=== PATIENT | male | born 1965 | race Two or more races ===

== ENCOUNTER 2021-03-08 22:17 | Emergency (ER) | payer MEDICAID, OTHER ==
[~2021-03-08] VITALS: Ht 185.4 cm; Wt 95.3 kg
[2021-03-09] MEDS ORDERED: cefTRIAXone SOD 1,000 MG VL IM ONE (00:30)
[2021-03-09 00:40] VITALS: BP 149/82
== END 2021-03-09 00:47 | disposition home or self-care (01) ==
LOC: ER 22:19
DX: J18.9 Pneumonia, unspecified organism (principal); I10 Essential (primary) hypertension; Z20.822 Contact with and (suspected) exposure to COVID-19
CPT/HCPCS: 36415; 71046; 87426; 93005; 96372; 99285; J0696

== ENCOUNTER 2023-10-14 08:25 | Inpatient (IN) | payer MEDICAID ==
[~2023-10-14] VITALS: Ht 185.4 cm; Wt 96.4 kg
[2023-10-14] MEDS: cloNIDine HCL 0.1 MG TAB PO ONE (08:53)
[2023-10-14 09:32] LABS: Basophils # (auto) 0 10 ^3/uL (0-0.2); Basophils % (auto) 0.8 % (0.0-2.0); Eosinophils # (auto) 0.3 10 ^3/uL (0-0.8); Eosinophils % (auto) 5.9 % (0.0-7.0); Hematocrit 44.5 % (41.0-53.0); Hemoglobin 14.7 g/dL (13.5-17.5); Lymphocytes # (auto) 1.2 10 ^3/uL (0.4-5.4); Mean Corpuscular Volume 90.8 fL (80.0-100.0); Monocytes # (auto) 0.4 10 ^3/uL (0-1.3); Monocytes % (auto) 8.6 % (0.0-12.0); Neutrophils # (auto) 2.6 10 ^3/uL (1.6-8.6); Neutrophils % (auto) 57.7 % (37.0-80.0); Nucleated Red Blood Cells % 0.1 %; Red Cell Distribution Width 14.1 % (11.8-14.3); White Blood Cell 4.5 10^3/uL (4.4-10.8)
[2023-10-14 09:41] LABS: Chloride 107 mmol/L (98-107); Sodium 138 mmol/L (136-145)
[2023-10-14 09:42] LABS: Anion Gap 8 (5-15); Calcium 9.2 mg/dL (8.5-10.1); Carbon Dioxide 23 mmol/L (20-30)
[2023-10-14 09:47] LABS: BUN/Creatinine Ratio 13.2 (10.0-20.0); Blood Urea Nitrogen 16 mg/dL (9-23); Glucose 90 mg/dL (74-106)
[2023-10-14 10:00] LABS: INR 1.02 (0.9-1.15); Partial Thromboplastin Time 32.1 SEC (24.5-34.5); Prothrombin Time 10.7 sec (9.3-11.8)
[2023-10-14 10:16] VITALS: BP 174/95; PULSE 60; RESP 18; TEMP 97.9; O2SAT 97
[2023-10-14] MEDS ORDERED: GABA-1250 PO (11:03)
[2023-10-14] MEDS ORDERED: LOSA-535 PO (11:03)
[2023-10-14] MEDS ORDERED: HYDR-4298 PO (11:03)
[2023-10-14] MEDS ORDERED: NIFE90TA75 (11:03)
[2023-10-14] MEDS ORDERED: DULO1CAP5 PO (11:03)
[2023-10-14] MEDS ORDERED: MORPHINE SULFATE INJ 2 MG/ml SYRG IV PRN (11:15)
[2023-10-14] MEDS ORDERED: hydrALAZINE HCL 20 MG/ML VL IV PRN (11:15)
[2023-10-14] MEDS ORDERED: NITROGLYCERIN 0.4 MG SL TAB SL PRN (11:15)
[2023-10-14] MEDS ORDERED: HYDROcodone-ACET 5/325MG TAB PO PRN (11:15)
[2023-10-14] MEDS ORDERED: ACETAMINOPHEN 325 MG TAB PO PRN (11:15)
[2023-10-14 12:06] LABS: Triglycerides 62 mg/dL (< 150)
[2023-10-14 12:07] LABS: LDL Cholesterol 97 mg/dL (< 100)
[2023-10-14 12:08] LABS: Cholesterol 179 mg/dL (< 200); HDL Cholesterol 65 mg/dL (40-59)
[2023-10-14] MEDS ORDERED: DULoxetine HCL 30 MG CAP PO SCH (22:00)
[2023-10-15] MEDS ORDERED: LOSARTAN POTASSIUM 50 MG TAB PO SCH (10:00)
[2023-10-15] MEDS ORDERED: GABAPENTIN 300 MG CAP PO SCH (10:00)
== END 2023-10-15 23:27 | disposition left against medical advice (07) | DRG 199 ==
LOC: ER 08:25 → TELE 11:03
PROVIDERS: ADMIT Nurse Practitioner Family; ATTEND Nurse Practitioner Family
DX: I16.1 Hypertensive emergency (principal); F12.90 Cannabis use, unspecified, uncomplicated; R04.0 Epistaxis; F15.90 Other stimulant use, unspecified, uncomplicated; F17.210 Nicotine dependence, cigarettes, uncomplicated; F19.10 Other psychoactive substance abuse, uncomplicated; Z88.8 Allergy status to other drugs, medicaments and biological substances
CPT/HCPCS: 36415; 80048; 80061; 80320; 84443; 85025; 85610; 85730; 99291; G0378

== ENCOUNTER 2025-03-17 12:10 | Inpatient (IN) | payer MEDICAID ==
[2025-03-17] VITALS (34 sets, daily range): BP systolic 125–173; BP diastolic 87–120; PULSE 49–79; RESP 8–17; TEMP 97.6–98.8; O2SAT 83–100
[~2025-03-17] VITALS: Ht 185.4 cm; Wt 95.0 kg
[~2025-03-17 12:10] MED LIST: DULO1CAP5 PO; GABA-1250 PO; HYDR100T10 PO; LOSA-535 PO; NIFE90TA75
--- NOTE | 2025-03-17 12:21 | ECG ---
[facility] Test Date: 2025-03-17 Test Time: 12:13:41 Pat Name: [place] BETTENCOURT Department: Room: 0280T Gender: M Microbiology Analyst: RAYNE : 1965 Requested By: ANTONIO CALDERON Order Number: [id number] Reading MD: Ben Thornton Measurements Intervals [place] Rate: 98 P: 81 WA: 153 QRS: 30 QRSD: 84 T: 55 QT: 366 QTc: 468 Interpretive Statements Sinus rhythm Biatrial enlargement Posterior infarct, old Abnrm T, consider ischemia, anterolateral lds Electronically Signed On 03-18-2025 19:18:15 PDT by Ben Thornton Please click the below link to view image of tracing.
[2025-03-17] MEDS: HEPARIN SODIUM (PORCINE) 5000 UNITS/ML 1ML VIAL IV ONE (12:29)
--- NOTE | 2025-03-17 12:29 | ED.PDOC ---
HPI Comments 59-year-old male with PMHx HTN presents with a chief complaint of chest pain x 20 minutes prior to ER arrival. Patient states that his pain is localized to his sternal region, nonradiating, and rates it a sharp 10/10. Patient states that upon arrival to the ER the chest pain has subsided. Patients EKG for EMS showed ST elevations. Patient EKG upon ER arrival was sent to STEMI doctor who stated that he would be taking patient directly to the Tripper. Chief Complaint: STEMI Time Seen by MD: 12:10 Primary Care Provider: ? Reviewed Notes: Medications, Allergies Allergies: Coded Allergies: Lisinopril (Verified Allergy, Unknown, 03/08/21) Home Meds Reported Medications Nifedipine (Nifedipine Er) 90 Mg Tab, 1 10/14/23 Gabapentin (Gabapentin) 300 Mg Cap, PO 10/14/23 Duloxetine HCl (Duloxetine HCl) 30 Mg Cap, 1 CAP PO BID 10/14/23 Hydralazine Hcl (Hydralazine Hcl) 100 Mg Tab, 1 TAB PO BID 10/14/23 Losartan Potassium (Losartan Potassium) 100 Mg Tab, 1 TAB PO DAILY 10/14/23 Information Source: Patient, Emergency Med Personnel Mode of Arrival: EMS Severity: Moderate Timing: Minutes Duration: Since onset Prehospital treatment: 12 Lead EKG, ASA, Data Management Consultant Location: Substernal Radiation: No Radiation Quality: Sharp Onset: At Rest Cardiac Risk Factors: None PE Risk Factors: None Past Medical History PAST MEDICAL HISTORY: HTN Surgical History: Denies all surgeries Family History Family History: Reviewed,noncontributory to illness, No family hx of Cancer, No family hx of DM, No family hx of Heart miguel a, No family hx of HTN, No family hx ofKidney miguel a, No family hx of Liver miguel a, No family hx of Lung miguel a, No family hx of Stroke Social History Smoker: Cigarettes Alcohol: Occasionally Drugs: Marijuana, Methamphetamine Lives In: Home Constitutional: denies: chills, diaphoresis, fatigue, fever, malaise, sweats, w eakness, others EENTM: denies: blurred vision, double vision, ear bleeding, ear discharge, ear drainage, ear pain, ear ringing, eye pain, eye redness, hearing loss, mouth pain, mouth swelling, nasal discharge, nose bleeding, nose congestion, nose pain, photophobia, tearing, throat pain, throat swelling, voice changes, others Respiratory: denies: cough, hemoptysis, orthopnea, SOB at rest, shortness of breath, SOB with excertion, stridor, wheezing, others Cardiovascular: reports: chest pain; denies: dizzy spells, diaphoresis, Dyspnea on exertion, edema, irregular heart beat, left arm pain, lightheadedness, palpitations, PND, syncope, others Gastrointestinal: denies: abdomen distended, abdominal pain, blood streaked bowels, constipated, diarrhea, dysphagia, difficulty swallowing, hematemesis, melena, nausea, poor appetite, poor fluid intake, rectal bleeding, rectal pain, vomiting, others Genitourinary: denies: burning, dysuria, flank pain, frequency, hematuria, incontinence, penile discharge, penile sore, pain, testicle pain, testicle swelling, urgency, others Neurological: denies: dizziness, fainting, headache, left sided numbness, left sided weakness, numbness, paresthesia, pre-existing deficit, right sided numbness, right sided weakness, seizure, speech problems, tingling, tremors, weakness, others Musculoskeletal: denies: back pain, gout, joint pain, joint swelling, muscle pain, muscle stiffness, neck pain, others Integumetry: denies: bruises, change in color, change in hair/nails, dryness, laceration, lesions, lumps, rash, wounds, others Allergic/Immunocompromised: denies: Difficulty Healing, Frequent Infections, Hives, Itching, others Hematologic/Lymphatic: denies: anemia, blood clots, easy bleeding, easy bruising, swollen glands, others Endocrine: denies: excessive hunger, excessive sweating, excessive thirst, excessive urination, flushing, intolerance to cold, intolerance to heat, unexplained weight gain, unexplained weight loss, others Psychiatric: denies: anxiety, bipolar disorder, depression, hopeless, panic disorder, schizophrenia, sleepless, suicidal, others All Other Systems: Reviewed and Negative Physical Exam General Appearance: Moderate Distress, Normal HEENT: Normal ENT Inspection, Pharynx Normal, TMs Normal Neck: Full Range of Motion, Non-Tender, Normal, Normal Inspection Respiratory: Chest Non-Tender, Lungs Clear, No Accessory Muscle Use, No Respiratory Distress, Normal Breath Sounds Cardiovascular: No Edema, No JVD, No Murmur, No Gallop, Normal Peripheral Pulses, Regular Rate/Rhythm Breast Exam: Deferred Gastrointestinal: No Organomegaly, Non Tender, No Pulsatile Mass, Normal Bowel Sounds, Soft Genitalia: Deferred Pelvic: Deferred Rectal: Deferred Extremities: No calf tenderness, Normal capillary refill, Normal inspection, Normal range of motion, Non-tender, No pedal edema Musculoskeletal : Apperance: Normal Neurologic: Alert, drop hammer setter up II-XII nml as Tested, No Motor Deficits, Normal Affect, Normal Mood, No Sensory Deficits Cerebellar Function: Normal Reflexes: Normal Skin: Dry, Normal Color, Warm Peripheral Pulses: 3+ Radial (R), 3+ Radial (L) Lymphatic: No Adenopathy EKG EKG : Pulse Rate (adult): 98 Cardiac Rhythm: NSR Was a procedure done? Was a procedure done?: No CP Differential Dx Differential Diagnosis: A-fib, A-Flutter, Angina, Anxiety / Panic Attack, Atrial Dysrhythmia, Electrolyte Disorder X-Ray, Labs, Meds, VS Vital Signs Date Time Temp Pulse Resp B/P (MAP) Pulse Ox O2 Delivery O2 Flow Rate FiO2 03/17/25 12:44 98 03/17/25 12:13 98 03/17/25 12:13 79 17 95 Nasal Cannula* 2 28 03/17/25 12:11 97.7 86 18 157/95 97 97.7 03/17/25 12:11 97.7 86 18 157/95 (115) 97 97.7 Lab Test 03/17/25 12:16 Range/Units White Blood Count 5.3 4.4-10.8 10^3/uL Red Blood Count 4.83 4.5-5.90 10^6/uL Hemoglobin 14.6 13.5-17.5 g/dL Hematocrit 44.3 41.0-53.0 % Mean Corpuscular Volume 91.6 80.0-100.0 fL Mean Corpuscular Hemoglobin 30.3 28.0-32.0 pg Mean Corpuscular Hemoglobin Concent 33.1 32.0-36.0 g/dL Red Cell Distribution Width 14.5 H 11.8-14.3 % Platelet Count 327 140-450 10^3/uL Mean Platelet Volume 6.8 L 6.9-10.8 fL Neutrophils (%) (Auto) 47.7 37.0-80.0 % Lymphocytes (%) (Auto) 38.3 10.0-50.0 % Monocytes (%) (Auto) 9.8 0.0-12.0 % Eosinophils (%) (Auto) 3.7 0.0-7.0 % Basophils (%) (Auto) 0.5 0.0-2.0 % Neutrophils # (Auto) 2.5 1.6-8.6 10 ^3/uL Lymphocytes # (Auto) 2.0 0.4-5.4 10 ^3/uL Monocytes # (Auto) 0.5 0-1.3 10 ^3/uL Eosinophils # (Auto) 0.2 0-0.8 10 ^3/uL Basophils # (Auto) 0 0-0.2 10 ^3/uL Nucleated Red Blood Cells 0.0 % Prothrombin Time 10.3 9.3-11.8 sec Prothrombin Time INR 0.97 0.9-1.15 Activated Partial Thromboplast Time 28.5 24.5-34.5 SEC Sodium Level 141 136-145 mmol/L Potassium Level 3.5 3.5-5.1 mmol/L Chloride Level 108 H 98-107 mmol/L Carbon Dioxide Level 21 20-31 mmol/L Anion Gap 12 5-15 Blood Urea Nitrogen 15 9-23 mg/dL Creatinine 1.34 H 0.700-1.30 mg/dL Glomerular Filtration Rate Calc 61 >90 mL/min BUN/Creatinine Ratio 11.2 10.0-20.0 Serum Glucose 100 74-106 mg/dL Calcium Level 9.4 8.7-10.4 mg/dL Magnesium Level 2.1 1.6-2.6 mg/dL Total Bilirubin 0.6 0.2-1.0 mg/dL Aspartate Amino Transferase (AST) 21 13-40 U/L Alanine Aminotransferase (ALT) < 9 7-40 U/L Alkaline Phosphatase 96 46-116 U/L Troponin I High Sensitivity 8 </=54 ng/L Total Protein 7.5 5.7-8.2 g/dL Albumin 4.3 3.2-4.8 g/dL Current Medications Medications (Trade) Dose Ordered Sig/Jensen Route Start Time Stop Time Status Last Admin Heparin Sodium (Porcine) 5,000 units ONCE ONCE IV 03/17/25 12:30 03/17/25 12:31 DC 03/17/25 12:29 Patient alert. Complaining of chest pain. Was given aspirin prior to arrival. Vitals stable. Cardiac rhythm seen with the paramedics was showing elevation in the septal leads. He was given heparin. Spoke with Cardiology. He will be taken to labor relations officer. Explained to the patient. Continue monitoring. Time of 1ST Reevaluation: 12:40 Reevaluation 1ST: Unchanged Patient Education/Counseling: Diagnosis, Treatment, Need For Follow Up Family Education/Counseling: No Family Present SEPSIS Sepsis Screen Physician Orders Chest Portable (03/17/25 12:19) Data Management Consultant (03/17/25 12:19) Blood Pressure (03/17/25 12:19) Pulse Oximetry (03/17/25 12:19) Heplock Iv (03/17/25 12:19) Heplock Iv (03/17/25 12:19) Oxygen Per Hour (03/17/25 12:19) Electrocardigram (03/17/25 13:19) Electrocardigram (03/17/25 15:19) Cl Left Heart Cath (03/17/25 12:42) Vital Signs Date Time Temp Pulse Resp B/P (MAP) Pulse Ox O2 Delivery O2 Flow Rate FiO2 03/17/25 12:44 98 03/17/25 12:13 98 03/17/25 12:13 79 17 95 Nasal Cannula* 2 28 03/17/25 12:11 97.7 86 18 157/95 97 97.7 03/17/25 12:11 97.7 86 18 157/95 (115) 97 97.7 Laboratory Tests Test 03/17/25 12:16 White Blood Count 5.3 10^3/uL (4.4-10.8) Medications Medications Dose Ordered Sig/Jensen Route Start Time Stop Time Status Last Admin Dose Admin Heparin Sodium (Porcine) 5,000 units ONCE ONCE IV 03/17/25 12:30 03/17/25 12:31 DC 03/17/25 12:29 Departure 1 Departure Time of Disposition: 12:33 Impression: Primary Impression: STEMI (ST elevation myocardial infarction) Qualified Codes: I21.3 - ST elevation (STEMI) myocardial infarction of unspecified site Disposition: ADMITTED INPATIENT Admit to: Med Surg Condition: Guarded Critical Care Note Critical Care Time?: Yes (90 min-critical care time only) Stability Stability form required: No Heart Score Heart Score: Heart Score Response (Comments) Value History Highly Suspicious [address]-Deviation 2 Age 45-64 1 Risk Factors >3 or Hx ASHD 2 Troponin N/A 0 Total 7 I personally scribed for ANTONIO CALDERON MD ([email or web address]) on 03/17/25 at 12:29. Electronically submitted by Darshan Wiseman ([email or web address]). ANTONIO CALDERON MD Mar 17, 2025 12:29
[2025-03-17 12:40] LABS: Hematocrit 44.3 % (41.0-53.0); Hemoglobin 14.6 g/dL (13.5-17.5); Mean Corpuscular Hemoglobin 30.3 pg (28.0-32.0); Mean Corpuscular Volume 91.6 fL (80.0-100.0); Nucleated Red Blood Cells % 0.0 %
[2025-03-17 12:51] LABS: Alanine Aminotransferase < 9 U/L (7-40); Albumin 4.3 g/dL (3.2-4.8); Alkaline Phosphatase 96 U/L (46-116); Anion Gap 12 (5-15); BUN/Creatinine Ratio 11.2 (10.0-20.0); Bilirubin, Total 0.6 mg/dL (0.2-1.0); Blood Urea Nitrogen 15 mg/dL (9-23); Calcium 9.4 mg/dL (8.7-10.4); Carbon Dioxide 21 mmol/L (20-31); Chloride 108 mmol/L (98-107); Glucose 100 mg/dL (74-106); Magnesium 2.1 mg/dL (1.6-2.6); Potassium 3.5 mmol/L (3.5-5.1); Sodium 141 mmol/L (136-145); Total Protein 7.5 g/dL (5.7-8.2)
[2025-03-17] MEDS: IODIXANOL 320MG/ML 100ML BTL IV ONE ×2 (12:51→16:13)
[2025-03-17] MEDS: ANGIOMAX 250 MG VIAL IV ONE ×2 (12:52→16:12)
[2025-03-17] MEDS: SODIUM CHL 0.9% 50 ML ONE ×2 (12:52→16:12)
[2025-03-17] MEDS: LIDOCAINE 2%HCL (LOCAL ANESTH.) INJ 20ML MDV ONE (12:52)
[2025-03-17] MEDS: fentaNYL CITRATE 100 MCG/2 ML VL ONE (12:52)
[2025-03-17] MEDS: MIDAZOLAM HCL 2MG/2ML 2ml VIAL (1mg/ml) ONE (12:52)
--- NOTE | 2025-03-17 12:57 | DVH ---
CHEST RADIOGRAPH Indication: sob Technique: Single frontal view of the chest was obtained Comparison: None FINDINGS: Lines and Tubes: None Lungs: No focal consolidation. Mild pulmonary vascular congestion. Pleura: No effusion. No pneumothorax. Cardiomediastinal contours: Mild cardiomegaly. Bones: No acute osseous abnormality. IMPRESSION: 1. Mild cardiomegaly and mild pulmonary vascular congestion. No focal consolidations.
[2025-03-17] MEDS ORDERED: MORPHINE SULFATE INJ 2 MG/ml SYRG IV PRN (13:00)
[2025-03-17] MEDS ORDERED: NITROGLYCERIN 0.4 MG SL TAB SL PRN (13:00)
[2025-03-17 13:41] LABS: INR 0.97 (0.9-1.15); Partial Thromboplastin Time 28.5 SEC (24.5-34.5); Prothrombin Time 10.3 sec (9.3-11.8)
--- NOTE | 2025-03-17 15:04 | DVHHP2 ---
History of Present Illness Reason for Visit: STEMI History of Present Illness This is a pleasant 59-year-old male with PMHx HTN presents with a chief complaint of chest pain x 20 minutes prior to ER arrival. Patient states that his pain is localized to his sternal region, nonradiating, and rates it a sharp 10/10. Patient states that upon arrival to the ER the chest pain has subsided. Patients EKG for EMS showed ST elevations. Patient EKG upon ER arrival was sent to STEMI doctor who stated that he would be taking patient directly to the Mds Rn. Upon evaluation of patient, he denied chest pain and states that it has been relieved. He reported initial chest pain occurred last night but reoccurred this morning. He denied recent injury or trauma to his chest. He denied prior history of this pain. The patient is concerned about his symptoms and would like to be further evaluated and treated. The patient will be admitted under hospitalist care to the telemetry unit for continuous monitoring. The patient denies fever, chills, dizziness, headache, palpitations, shortness of breath, nausea, vomiting, abdominal pain, diarrhea, constipation and other associated symptoms. The plan has been discussed with the patient and primary RN in which all questions concerns have been addressed. Cardiovascular: HTN Past Surgical History: None Family History: None Smoke: No ALCOHOL: none Drugs: None Lives: with Family Domestic Violence: Neg Review of Systems Cardiovascular: Chest Pain Allergies: Coded Allergies: Lisinopril (Verified Allergy, Unknown, 03/08/21) Medications Current Medications Medications Dose Ordered Sig/Jensen Route Start Time Stop Time Status Last Admin Dose Admin Sodium Chloride 1,000 ml @ 100 mls/hr Q10H IV 03/17/25 13:00 Acetaminophen 650 mg Q6HP PRN PO 03/17/25 13:00 Nitroglycerin 0.4 mg Q5MINP PRN SL 03/17/25 13:00 Morphine Sulfate 2 mg Q30M PRN IV 03/17/25 13:00 Exam Vital Signs Vital Signs Date Time Temp Pulse Resp B/P (MAP) Pulse Ox O2 Delivery O2 Flow Rate FiO2 03/17/25 12:44 98 03/17/25 12:13 17 95 Nasal Cannula* 2 28 03/17/25 12:11 97.7 157/95 97.7 General Appearance: Alert, Oriented X3, Cooperative, No acute distress HEENT: Atraumatic, PERRLA, Mucous membr. moist/pink Respiratory: Clear to auscultation, Normal air movement Cardiovascular: Regular rate, Normal S1, Normal S2, No murmurs Abdominal: Normal bowel sounds, Soft, No tenderness, No hepatospenomegaly, No masses Extremities: No clubbing, No cyanosis, No edema, Normal pulses, No tenderness/swelling Skin: No rashes, No breakdown Neuro: Normal gait, Normal speech, Strength at 5/5 X4 ext, Normal tone, Sensation intact, Cranial nerves 3-12 NL Psych/Mental Status: Mental status NL, Mood NL Labs/Xrays Labs Test 03/17/25 12:16 Range/Units White Blood Count 5.3 4.4-10.8 10^3/uL Red Blood Count 4.83 4.5-5.90 10^6/uL Hemoglobin 14.6 13.5-17.5 g/dL Hematocrit 44.3 41.0-53.0 % Mean Corpuscular Volume 91.6 80.0-100.0 fL Mean Corpuscular Hemoglobin 30.3 28.0-32.0 pg Mean Corpuscular Hemoglobin Concent 33.1 32.0-36.0 g/dL Red Cell Distribution Width 14.5 H 11.8-14.3 % Platelet Count 327 140-450 10^3/uL Mean Platelet Volume 6.8 L 6.9-10.8 fL Neutrophils (%) (Auto) 47.7 37.0-80.0 % Lymphocytes (%) (Auto) 38.3 10.0-50.0 % Monocytes (%) (Auto) 9.8 0.0-12.0 % Eosinophils (%) (Auto) 3.7 0.0-7.0 % Basophils (%) (Auto) 0.5 0.0-2.0 % Neutrophils # (Auto) 2.5 1.6-8.6 10 ^3/uL Lymphocytes # (Auto) 2.0 0.4-5.4 10 ^3/uL Monocytes # (Auto) 0.5 0-1.3 10 ^3/uL Eosinophils # (Auto) 0.2 0-0.8 10 ^3/uL Basophils # (Auto) 0 0-0.2 10 ^3/uL Nucleated Red Blood Cells 0.0 % Prothrombin Time 10.3 9.3-11.8 sec Prothrombin Time INR 0.97 0.9-1.15 Activated Partial Thromboplast Time 28.5 24.5-34.5 SEC Sodium Level 141 136-145 mmol/L Potassium Level 3.5 3.5-5.1 mmol/L Chloride Level 108 H 98-107 mmol/L Carbon Dioxide Level 21 20-31 mmol/L Anion Gap 12 5-15 Blood Urea Nitrogen 15 9-23 mg/dL Creatinine 1.34 H 0.700-1.30 mg/dL Glomerular Filtration Rate Calc 61 >90 mL/min BUN/Creatinine Ratio 11.2 10.0-20.0 Serum Glucose 100 74-106 mg/dL Calcium Level 9.4 8.7-10.4 mg/dL Magnesium Level 2.1 1.6-2.6 mg/dL Total Bilirubin 0.6 0.2-1.0 mg/dL Aspartate Amino Transferase (AST) 21 13-40 U/L Alanine Aminotransferase (ALT) < 9 7-40 U/L Alkaline Phosphatase 96 46-116 U/L Troponin I High Sensitivity 8 </=54 ng/L Total Protein 7.5 5.7-8.2 g/dL Albumin 4.3 3.2-4.8 g/dL ORDERING PHYSICIAN: ANTONIO CALDERON MD PROCEDURE(s): CXRP - CHEST PORTABLE REASON: sob ORDER NUMBER(s): [id number], ACCESSION NUMBER(s): [id number] CHEST RADIOGRAPH Indication: sob Technique: Single frontal view of the chest was obtained Comparison: None FINDINGS: Lines and Tubes: None Lungs: No focal consolidation. Mild pulmonary vascular congestion. Pleura: No effusion. No pneumothorax. Cardiomediastinal contours: Mild cardiomegaly. Bones: No acute osseous abnormality. IMPRESSION: 1. Mild cardiomegaly and mild pulmonary vascular congestion. No focal consolidations. ATED BY: LAVERNE LUCIO MD DICTATED DATE/TIME: 03/17/251254 SIGNED BY: LAVERNE LUCIO MD SIGNED DATE/TIME: 03/17/251254 CC: SEPSIS Sepsis Screen Date sepsis recognized/suspect: Mar 17, 2025 Time Sepsis recognized/suspect: 1211 Recent Procedure: No On Antibiotic Therapy: No Respiratory Rate >20: No Heart Rate >90: No Temp<36 C (96.8 F) or >38.3 C: No SBP <90 or MAP <65 mmHG: No New Acute Mental Status Change: No Is the patient on CPAP, BIPAP,: No Physician Orders Chest Portable (03/17/25 12:19) Solutions Development Analyst (03/17/25 12:19) Blood Pressure (03/17/25 12:19) Pulse Oximetry (03/17/25 12:19) Heplock Iv (03/17/25 12:19) Heplock Iv (03/17/25 12:19) Oxygen Per Hour (03/17/25 12:19) Echo 2d Mode Cardiac Dop (03/17/25 12:19) Electrocardigram (03/17/25 13:19) Electrocardigram (03/17/25 15:19) Cl Left Heart Cath (03/17/25 12:42) Admit (03/17/25 12:54) Sodium Chloride 0.9% (03/17/25 13:00) Complete Blood Count (03/18/25 04:00) Comprehensive Metabolic Panel (03/18/25 04:00) Npo (Nothing By Mouth) Diet (03/17/25 Lunch) Condition: Fair (03/17/25 12:54) Acetaminophen Tablet (Tylenol Tablet) (03/17/25 13:00) Maintain Bed Rest (03/17/25 12:54) Nitroglycerin Sublingual (Ntrostat Subli (03/17/25 13:00) Morphine Sulfate Injection (03/17/25 13:00) Stat Ekg For Chest Pain (03/17/25 12:54) Notify Md Of Changes From Base (03/17/25 12:54) Motorsports Technician For 24 Hours (03/17/25 12:54) Emergency Dysrhythmia Protocol (03/17/25 12:54) Rhythm Strips Once Every Shift (03/17/25 12:54) Oxygen By Nasal Cannula (03/17/25 12:54) Vital Signs Date Time Temp Pulse Resp B/P (MAP) Pulse Ox O2 Delivery O2 Flow Rate FiO2 03/17/25 12:44 98 03/17/25 12:13 98 03/17/25 12:13 79 17 95 Nasal Cannula* 2 28 03/17/25 12:11 97.7 86 18 157/95 97 97.7 03/17/25 12:11 97.7 86 18 157/95 (115) 97 97.7 Laboratory Tests Test 03/17/25 12:16 White Blood Count 5.3 10^3/uL (4.4-10.8) Medications Medications Dose Ordered Sig/Jensen Route Start Time Stop Time Status Last Admin Dose Admin Heparin Sodium (Porcine) 5,000 units ONCE ONCE IV 03/17/25 12:30 03/17/25 12:31 DC 03/17/25 12:29 5,000 UNITS Assessment/Plan Assessment/Plan STEMI---patient complain of nonradiating 10/10 chest pain 20 minutes prior to EMS arrival with no associated symptoms Patient was given nitro and aspirin which improved symptoms Upon evaluation patient alert oriented x4, denied chest pain He reported chest pain occurred last night and reoccurred this morning No recent injury or trauma to his chest and no prior history Dr. Bandar Noguera confirmed STEMI and analyst microbiology lab team notified Admit to telemetry unit ACS protocol Paula MANAGER FASHION notified Reviewed 12 lead EKG CBC within normal limits BMP within normal limits Troponin normal Heparin ordered by ER physician IV hydration NPO Echocardiogram pending Reconcile home meds DVT prophylax PUD prophylaxis Labs in a.m. Discussed plan of care with the patient and primary RN in which all questions concerns have been addressed Plan discussed with: Patient My Orders Orders - SADE MCGRAW SLATE HANDLER Procedure Category Date Status Time Admit ADMIT 03/17/25 Transmitted 12:54 Sodium Chloride 0.9% PHA 03/17/25 In Process 13:00 Complete Blood Count LAB 03/18/25 Verified 04:00 Comprehensive LAB 03/18/25 Verified Metabolic Panel 04:00 Npo (Nothing By DIET 03/17/25 Transmitted Mouth) Diet Lunch Condition: Fair CHRIS 03/17/25 In Process 12:54 Acetaminophen Tablet PHA 03/17/25 In Process (Tylenol Tablet) 13:00 Maintain Bed Rest CRHIS 03/17/25 In Process 12:54 Nitroglycerin PHA 03/17/25 In Process Sublingual (Ntrostat 13:00 Morphine Sulfate PHA 03/17/25 In Process Injection 13:00 Stat Ekg For Chest CHRIS 03/17/25 In Process Pain 12:54 Notify Of Changes CHRIS 03/17/25 In Process From Base 12:54 Motorsports Technician For CHRIS 03/17/25 In Process 24 Hours 12:54 Emergency Dysrhythmia CHRIS 03/17/25 In Process Protocol 12:54 Rhythm Strips Once CHRIS 03/17/25 In Process Every Shift 12:54 Oxygen By Nasal RT 03/17/25 Transmitted Cannula 12:54 Date of Service: Mar 17, 2025 Billing Provider: SADE MCGRAW Common Visit Codes: [id number] INP/OBS CARE (HIGH) SADE MCGRAW Mar 17, 2025 15:04
[2025-03-17] MEDS: SODIUM CHLORIDE 0.9% 1,000 ML IV SCH (15:22)
--- NOTE | 2025-03-17 15:49 | DVHOP ---
DATE OF SURGERY: 03/17/2025 TECHNIQUE PERFORMED: * Code STEMI. * Insertion of a 6-[place] arterial line from the right femoral artery under fluoroscopic guidance and supervision. * Management of conscious sedation. * Left heart catheterization. * Left ventriculogram. * [place] selective left and right coronary artery angiography. COMPLICATIONS: None. DESCRIPTION OF PROCEDURE: The procedure, risks and benefits all have been explained to the patient, understood and accepted very well. The patient was urgently brought to our clinical laboratory service teacher. Right and left groin were shaved, cleaned with soap and Betadine. Under fluoroscopic guidance, 6-[place] arterial line was placed and we have put a JL4 catheter and we also put a right. Subsequently, we changed it to the JR4 catheter and it has been now noted that the catheter was twisted after we put an XB 3.5 6-[place]anese guiding catheter and now subsequently the catheter had been discontinued. Arterial line also had been discontinued as it was also twisted and then we applied pressure on the right groin for more than half hour. We also punctured the left groin. Our nurse, Linda, has helped so much to hold the pressure on the right groin while I was doing the procedure from the left groin. At the end of the procedure, we also did a left heart cath and left ventriculogram. IMPRESSION: * Normal left main. 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 * The circumflex and obtuse marginal normal. * The right artery is normal. * Ejection fraction of the left ventricle is 65% plus and is normal. CONCLUSION: * The study has revealed normal left ventricle. 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 * Circumflex and obtuse marginal are normal. * Right normal. * Ejection fraction is 65%. PLAN OF ACTION: Advised the patient to undergo intervention over the left anterior descending artery. Lemuel Noguera MD MP/JOSHUA/KALIN TID: [id number] RECEIPT: [id number] [facility]ALSebastián
--- NOTE | 2025-03-17 16:00 | DVHOP ---
DATE OF SURGERY: 03/17/2025 TECHNIQUES PERFORMED: * Code STEMI. * Insertion of a 6-[place] arterial line from the left femoral artery. * Management of conscious sedation. * Left coronary angiography. * Mechanical thrombectomy of the left anterior descending artery with help of Imperial catheter. * Balloon angioplasty of the mid region of the left anterior descending artery with 2.5 x 15 mm length semi-compliant balloon. * Stenting and angioplasty of the mid region of the left artery with a 3.0 x 22 mm length Sony Elmore stent of [employer]. * Intravascular ultrasound of the left main and also of the left anterior descending artery. * Left iliofemoral artery angiography. * Arteriotomy Angio-Seal of the right femoral artery. COMPLICATIONS: None. ASSISTANTS: Assisted by our staff over here is Tree Mckeon Angela, and Rani. Today is 03/17 on Tuesday at approximately 2:00 p.m. INDICATION: Code STEMI, acute anterior wall myocardial infarction, ST elevation. Procedure, risks and benefits discussed, counseling done, questions answered. DESCRIPTION OF PROCEDURE: We have punctured the left femoral area and a long 6-Andorran arterial line was placed and subsequently we put JL 3.5, 6-Andorran guiding catheter and left coronary angio done and Angiomax was started. Runthrough wire was passed. Imperial catheter was passed. Mechanical thrombectomy was done. Subsequently, we put a balloon 2.5 x 15, balloon angioplasty was done. Subsequently, we put a stent 3.0 x 22 mm length stent, deployed at total of 15 atmosphere. Stent size was gradually increased up to 3.25 and inflated for 31 seconds and subsequently for 21 seconds. Balloon deflated, balloon had been discontinued. Intravascular ultrasound was done. Result was satisfactory. There were no complications. The patient did very well. Balloon, wire, catheter all have been discontinued. LV gram was done. Subsequently, we also did a left iliofemoral artery angiography. Arteriotomy Angio-Seal was done. There was no complication. CONCLUSION: Prior to performing the procedure #1, the left anterior descending artery in its mid region is narrowed, 99.9%, thrombus formation, MAYITO grade 2 flow and type C lesion. Postprocedure, MAYITO grade 3 flow, residual stenosis at 0%, 100% widely open, no spasm, no dissection, no thrombosis. 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 Lemuel Noguera MD MP/RADHA/KALIN TID: [id number] RECEIPT: [id number] MTDD
[2025-03-17] MEDS: LABETALOL HCL 5 MG/ML ML 20ML VIAL IV ONE (16:12)
[2025-03-17] MEDS: EPTIFIBATIDE INJ (2MG/ML) 10ML VIAL IV ONE (16:12)
[2025-03-17] MEDS: NITROGLYCERIN 50MG/250ML 250 ML IV ONE (16:12)
[2025-03-17] MEDS: HYDROmorphone HCL 2 MG/ML VL/or syr ONE (16:13)
[2025-03-17] MEDS: TICAGRELOR 90 MG TAB ONE (16:13)
[2025-03-17] MEDS: LABETALOL HCL 20 MG/4 ML VL IV PRN (17:33)
[2025-03-17] MEDS: LABETALOL HCL 20 MG/4 ML VL IV ONE (17:33)
[2025-03-17] MEDS ORDERED: PREG100C PO (19:08)
[2025-03-17] MEDS ORDERED: GABA-1250 PO (19:08)
[2025-03-17] MEDS: METOPROLOL TARTRATE 25 MG TAB PO SCH (22:00)
[2025-03-17] MEDS: TICAGRELOR 90 MG TAB PO SCH (22:15)
[2025-03-17] MEDS: ATORVASTATIN 20 MG TAB PO SCH (22:16)
--- NOTE | 2025-03-17 22:49 | DVHINCON2 ---
Date of service: Mar 17, 2025 Referring Physician Alaina Reason for Consultation STEMI History of Present Illness This is a 59-year-old male with a PMH of HTN who presents to the ED with a complaint of chest pain x 20 minutes prior to ED arrival. Patient states that his pain is localized to his sternal region, nonradiating, and rates it a sharp 10/10. Patient states that upon arrival to the ED the chest pain has subsided. Patients EKG done by EMS showed ST elevations. He denied recent injury or trauma to his chest. Chest x-ray showed mild cardiomegaly and mild pulmonary vascular congestion. EKG consistent with STEMI. Code STEMI was called. I evaluated the patient at bedside within a few minutes. Patient will be emergently taken to the cath lab tech and admitted to ICU. Family History: Patient reports no known family medical history. Allergies: Coded Allergies: Lisinopril (Verified Allergy, Unknown, 03/08/21) Home Meds Reported Medications Pregabalin (Lyrica) 100 Mg Cap, 1 CAP PO BID, #60 CAP 2 Refills 03/17/25 Gabapentin (Gabapentin) 300 Mg Cap, 300 MG PO BID for 30 Days, MG 03/17/25 Nifedipine (Nifedipine Er) 90 Mg Tab, 1 10/14/23 Duloxetine HCl (Duloxetine HCl) 30 Mg Cap, 1 CAP PO BID 10/14/23 Hydralazine Hcl (Hydralazine Hcl) 100 Mg Tab, 1 TAB PO BID 10/14/23 Losartan Potassium (Losartan Potassium) 100 Mg Tab, 1 TAB PO DAILY 10/14/23 Discontinued Reported Medications Gabapentin (Gabapentin) 300 Mg Cap, PO 10/14/23 Current Medications Current Medications Medications (Trade) Dose Ordered Sig/Jensen Route PRN Reason Start Time Stop Time Status Last Admin Sodium Chloride 1,000 ml @ 100 mls/hr Q10H IV 03/17/25 13:00 03/17/25 15:22 Acetaminophen (Tylenol Tablet) 650 mg Q6HP PRN PO PAIN SCALE 1-3 OR TEMP>100.4 03/17/25 13:00 Nitroglycerin (Ntrostat Sublingual) 0.4 mg Q5MINP PRN SL FOR CHEST PAIN 03/17/25 13:00 Morphine Sulfate 2 mg Q30M PRN IV FOR CHEST PAIN 03/17/25 13:00 Duloxetine HCl (Cymbalta Capsule) 30 mg BID PO 03/17/25 22:00 Hydralazine HCl (Apresoline Tablet) 100 mg BID PO 03/17/25 22:00 Losartan Potassium (Cozaar Tablet) 100 mg DAILY PO 03/18/25 10:00 Labetalol HCl (Labetalol HCl) 10 mg Q2HPRN PRN IV SBP>150 03/17/25 17:00 03/17/25 17:33 Aspirin 81 mg DAILY PO 03/18/25 10:00 Ticagrelor (Brilinta) 90 mg BID PO 03/17/25 22:00 Metoprolol Tartrate (Lopressor Tablet) 25 mg TID PO 03/17/25 22:00 Atorvastatin Calcium (Lipitor) 80 mg HS PO 03/17/25 22:00 Review of Systems Constitutional: denies: chills, diaphoresis, fatigue, fever, malaise, sweats, weakness, others EENTM: denies: blurred vision, double vision, ear bleeding, ear discharge, ear drainage, ear pain, ear ringing, eye pain, eye redness, hearing loss, mouth pain, mouth swelling, nasal discharge, nose bleeding, nose congestion, nose pain, photophobia, tearing, throat pain, throat swelling, voice changes, others Respiratory: denies: cough, hemoptysis, orthopnea, SOB at rest, shortness of breath, SOB with excertion, stridor, wheezing, others Cardiovascular: reports: chest pain; denies: dizzy spells, diaphoresis, Dyspnea on exertion, edema, irregular heart beat, left arm pain, lightheadedness, palpitations, PND, syncope, others Gastrointestinal: denies: abdomen distended, abdominal pain, blood streaked bowels, constipated, diarrhea, dysphagia, difficulty swallowing, hematemesis, melena, nausea, poor appetite, poor fluid intake, rectal bleeding, rectal pain, vomiting, others Genitourinary: denies: burning, dysuria, flank pain, frequency, hematuria, incontinence, penile discharge, penile sore, pain, testicle pain, testicle swelling, urgency, others Neurological: denies: dizziness, fainting, headache, left sided numbness, left sided weakness, numbness, paresthesia, pre-existing deficit, right sided numbness, right sided weakness, seizure, speech problems, tingling, tremors, weakness, others Musculoskeletal: denies: back pain, gout, joint pain, joint swelling, muscle pain, muscle stiffness, neck pain, others Integumetry: denies: bruises, change in color, change in hair/nails, dryness, laceration, lesions, lumps, rash, wounds, others Allergic/Immunocompromised: denies: Difficulty Healing, Frequent Infections, Hives, Itching, others Hematologic/Lymphatic: denies: anemia, blood clots, easy bleeding, easy bruising, swollen glands, others Endocrine: denies: excessive hunger, excessive sweating, excessive thirst, excessive urination, flushing, intolerance to cold, intolerance to heat, unexplained weight gain, unexplained weight loss, others Psychiatric: denies: anxiety, bipolar disorder, depression, hopeless, panic disorder, schizophrenia, sleepless, suicidal, others All Other Systems: Reviewed and Negative Vital Signs Vital Signs Date Time Temp Pulse Resp B/P (MAP) Pulse Ox O2 Delivery O2 Flow Rate FiO2 03/17/25 18:33 74 164/124 03/17/25 18:15 8 100 03/17/25 16:15 97.6 97.6 03/17/25 15:22 Nasal Cannula* 2 28 Physical Exam GENERAL: Alert and oriented x 3. No acute distress. EYES: PERRL, EOMI. Anicteric. HENT: Moist mucous membranes. LUNGS: Clear to auscultation bilaterally. CARDIOVASCULAR: Regular rate and rhythm. ABDOMEN: Soft, nontender and nondistended. EXTREMITIES: No edema. NEUROLOGIC: No focal neurological deficits. SKIN: Warm, dry. Labs/Diagnostic Data Labs Test 03/17/25 12:16 Range/Units White Blood Count 5.3 4.4-10.8 10^3/uL Red Blood Count 4.83 4.5-5.90 10^6/uL Hemoglobin 14.6 13.5-17.5 g/dL Hematocrit 44.3 41.0-53.0 % Mean Corpuscular Volume 91.6 80.0-100.0 fL Mean Corpuscular Hemoglobin 30.3 28.0-32.0 pg Mean Corpuscular Hemoglobin Concent 33.1 32.0-36.0 g/dL Red Cell Distribution Width 14.5 H 11.8-14.3 % Platelet Count 327 140-450 10^3/uL Mean Platelet Volume 6.8 L 6.9-10.8 fL Neutrophils (%) (Auto) 47.7 37.0-80.0 % Lymphocytes (%) (Auto) 38.3 10.0-50.0 % Monocytes (%) (Auto) 9.8 0.0-12.0 % Eosinophils (%) (Auto) 3.7 0.0-7.0 % Basophils (%) (Auto) 0.5 0.0-2.0 % Neutrophils # (Auto) 2.5 1.6-8.6 10 ^3/uL Lymphocytes # (Auto) 2.0 0.4-5.4 10 ^3/uL Monocytes # (Auto) 0.5 0-1.3 10 ^3/uL Eosinophils # (Auto) 0.2 0-0.8 10 ^3/uL Basophils # (Auto) 0 0-0.2 10 ^3/uL Nucleated Red Blood Cells 0.0 % Prothrombin Time 10.3 9.3-11.8 sec Prothrombin Time INR 0.97 0.9-1.15 Activated Partial Thromboplast Time 28.5 24.5-34.5 SEC Sodium Level 141 136-145 mmol/L Potassium Level 3.5 3.5-5.1 mmol/L Chloride Level 108 H 98-107 mmol/L Carbon Dioxide Level 21 20-31 mmol/L Anion Gap 12 5-15 Blood Urea Nitrogen 15 9-23 mg/dL Creatinine 1.34 H 0.700-1.30 mg/dL Glomerular Filtration Rate Calc 61 >90 mL/min BUN/Creatinine Ratio 11.2 10.0-20.0 Serum Glucose 100 74-106 mg/dL Calcium Level 9.4 8.7-10.4 mg/dL Magnesium Level 2.1 1.6-2.6 mg/dL Total Bilirubin 0.6 0.2-1.0 mg/dL Aspartate Amino Transferase (AST) 21 13-40 U/L Alanine Aminotransferase (ALT) < 9 7-40 U/L Alkaline Phosphatase 96 46-116 U/L Troponin I High Sensitivity 8 </=54 ng/L Total Protein 7.5 5.7-8.2 g/dL Albumin 4.3 3.2-4.8 g/dL Assessment STEMI. HTN. Plan/Recommendation I agree with your ongoing assessment and care of plan. Emergency cardiac cath. Risks and benefits were discussed with the patient. Echocardiogram. Aspirin, Lipitor, Brilinta. Losartan, Hydralazine. IV Labetalol for SBP > 150. Morphine for pain management. Additional plan as per the hospital course. Critical care time of 90 minutes provided to include time spent evaluation of patient at bedside, when appropriate patient/family education for diagnosis, treatment plan, review of pertinent medical information and discussion of care with specialty providers and PCP. Plan discussed with: Patient CRYSTAL HARMON MD Mar 17, 2025 19:04
[2025-03-18] VITALS (42 sets, daily range): BP systolic 127–176; BP diastolic 88–124; PULSE 57–93; RESP 9–23; TEMP 97.4–99.2; O2SAT 94–100
[2025-03-18] MEDS: ACETAMINOPHEN 325 MG TAB PO PRN (02:38)
[2025-03-18 05:54] LABS: Hematocrit 39.9 % (41.0-53.0); Hemoglobin 13.5 g/dL (13.5-17.5); Mean Corpuscular Hemoglobin 31.1 pg (28.0-32.0); Mean Corpuscular Volume 92.2 fL (80.0-100.0); Nucleated Red Blood Cells % 0.1 %
[2025-03-18 06:06] LABS: Alanine Aminotransferase 10 U/L (7-40); Alkaline Phosphatase 76 U/L (46-116); Anion Gap 8 (5-15); BUN/Creatinine Ratio 10.2 (10.0-20.0); Blood Urea Nitrogen 12 mg/dL (9-23); Carbon Dioxide 25 mmol/L (20-31); Glucose 85 mg/dL (74-106); Potassium 3.9 mmol/L (3.5-5.1); Sodium 141 mmol/L (136-145); Total Protein 6.4 g/dL (5.7-8.2)
[2025-03-18 06:07] LABS: Albumin 3.6 g/dL (3.2-4.8)
[2025-03-18 06:08] LABS: Bilirubin, Total 0.6 mg/dL (0.2-1.0)
[2025-03-18 06:10] LABS: Calcium 8.4 mg/dL (8.7-10.4); Chloride 108 mmol/L (98-107)
[2025-03-18] MEDS: LOSARTAN POTASSIUM 50 MG TAB PO SCH (08:48)
--- NOTE | 2025-03-18 08:49 | DVHSR ---
APPROVED REPORT EXAM: Two-dimensional and M-mode echocardiogram with Doppler and color Doppler. Blood Pressure: 157/95 mmHg INDICATION S/P left heart cath RISK FACTORS Height: 6'1", Weight: 202 DIMENSIONS LVDd3.9 (3.8-5.7cm)LA (2D)4.2 (1.9-4.0cm)Aortic Root3.9 (2.0-3.7cm) LVDs2.9 (2.5-4.0cm)LA (MM) (1.9-4.0cm)Aortic Cusp Exc2.3 (1.5-2.0cm) EF (%) 50.0 (55-70%)Rt. Atrium4.0 (1.9-4.0cm)Asc. Aorta cm IVSd1.3 (0.7-1.1cm)RV (D)4.2 (1.8-2.4cm) PWd1.4 (0.7-1.1cm) Mitral Valve MitralMitral Stenosis E wave0.53m/sMV Mean GR.mmHg A wave0.82m/sMV Peak GR.mmHg E/A ratio0.62D MVAcm2 DECEL [id number] 1/2 Timems Aortic Valve Aortic ValveAortic Stenosis V10.85m/Dominick Mean GR.3mmHg V21.08m/Dominick Peak GR.5mmHg LVOT Diameter2.3 (1.8-2.4cm)Doppler AVA3.27cm2 Pulmonic Valve V20.64m/s Tricuspid Valve TR Velocity2.76m/s [id number] Other Information Technically limited study due to body habitus, patient lying flat s/p heart cath. Conclusion lvef 50-55% moderat LVH normal rv function left atrium enlarged mild
--- NOTE | 2025-03-18 11:40 | DVHPN2 ---
Progress Note Date Seen: Mar 18, 2025 Medical Necessity Reason Pt with a Central, PICC or Fol: No Subjective Patient reports: No new complaints Review of Systems: HEENT:Normal, CVS:Normal, RESPIRATORY:Normal, GI:Normal, :Normal, MSK:Normal, NEURO:Normal Objective vital signs Vital Sign Date Time Temp Pulse Resp B/P (MAP) Pulse Ox O2 Delivery O2 Flow Rate FiO2 03/18/25 10:00 65 13 146/99 (115) 97 03/18/25 08:00 98.4 98.4 03/18/25 08:00 Room Air* 0 21 Total Intake and Output 03/17/25 03/17/25 03/18/25 15:00 23:00 07:00 Intake Total 500 ml 1200 ml Output Total 0 ml 500 ml Balance 500 ml 700 ml medications Current Medications Medications Dose Ordered Sig/Jensen Route Start Time Stop Time Status Last Admin Dose Admin Sodium Chloride 1,000 ml @ 100 mls/hr Q10H IV 03/17/25 13:00 03/18/25 08:49 100 MLS/HR Acetaminophen 650 mg Q6HP PRN PO 03/17/25 13:00 03/18/25 02:38 650 MG Nitroglycerin 0.4 mg Q5MINP PRN SL 03/17/25 13:00 Morphine Sulfate 2 mg Q30M PRN IV 03/17/25 13:00 Duloxetine HCl 30 mg BID PO 03/17/25 22:00 03/18/25 08:47 30 MG Hydralazine HCl 100 mg BID PO 03/17/25 22:00 03/18/25 08:48 100 MG Losartan Potassium 100 mg DAILY PO 03/18/25 10:00 03/18/25 08:48 100 MG Labetalol HCl 10 mg Q2HPRN PRN IV 03/17/25 17:00 03/18/25 00:20 10 MG Aspirin 81 mg DAILY PO 03/18/25 10:00 03/18/25 08:47 81 MG Ticagrelor 90 mg BID PO 03/17/25 22:00 03/18/25 08:47 90 MG Metoprolol Tartrate 25 mg TID PO 03/17/25 22:00 Atorvastatin Calcium 80 mg HS PO 03/17/25 22:00 03/17/25 22:16 80 MG Examination: GENERAL:Normal, HEENT:Normal, NECK:Normal, LUNGS:Normal, CVS:Normal, ABDOMEN:Normal, MSK:Normal, MSK:Abnormal (left leg deformity/wasting), SKIN:Normal, NEURO:Normal, :Normal laboratory and microbiology Laboratory Tests 03/18/25 05:24 Test 03/18/25 05:24 Range/Units Serum Glucose 85 74-106 mg/dL Problem List/Assessment/Plan Problem List/Assessment/Plan #1 acute mi s/p angio/stent in lad: cont meds #2 hypertensive emergency: adjust meds #3 tobacco abuse: advised to quit, no replacement due to mi #4 hyperlipidemia #5 alcohol abuse #6 left leg- club foot #7 non compliance #8 acute renal failure ?vasomotor nephropathy #9 ? acute diastolic heart failure Plan discussed with: Patient, Son My Orders My Orders Orders - PORSHA VOGEL MD Procedure Category Date Status Time Metoprolol Tartrate PHA 03/18/25 Verified Tablet (Lopressor Ta 22:00 Transfer Orders XFER 03/18/25 Verified 11:33 * Mentally Impaired Teacher CONS 03/18/25 Verified Consult Urinalysis LAB 03/18/25 Uncollected 11:33 Drug Screen LAB 03/18/25 Verified 11:33 Basic Metabolic Panel LAB 03/19/25 Verified 06:00 Complete Blood Count LAB 03/19/25 Verified 06:00 Lipid Panel LAB 03/19/25 Verified 06:00 Critical Care Time (mins): 41 (critical care time excluding procedures is 41 mins) Date of Service: Mar 18, 2025 Billing Provider: PORSHA VOGEL MD Common Visit Codes: 97616-[id number] CARE 30-74 MIN PORSHA VOGEL MD Mar 18, 2025 11:40
[2025-03-18 14:11] LABS: Amphetamine Screen, Urine Pos (NEGATIVE); Barbiturate Scree,Urine Neg (NEGATIVE); Benzodiazephine Screen, Urine Pos (NEGATIVE); Cocaine Screen, Urine Neg (NEGATIVE); Opiate Scree,Urine Neg (NEGATIVE); Phencyclidine Screen, Urine Neg (NEGATIVE)
[2025-03-18 14:12] LABS: Cannabinoid Screen, Urine Neg (NEGATIVE)
[2025-03-18] MEDS: METOPROLOL TARTRATE 25 MG TAB PO SCH (21:20)
[2025-03-19] VITALS (7 sets, daily range): BP systolic 130–160; BP diastolic 80–124; PULSE 58–90; RESP 12–18; TEMP 97.5–98.2; O2SAT 94–100
--- NOTE | 2025-03-19 00:05 | DVHPN2 ---
Progress Note - Dictate Date Seen: Mar 18, 2025 Medical Necessity Reason Pt with a Central, PICC or Fol: No Subjective Patient was seen and evaluated in follow up. Patient underwent emergency left heart catheterization, [place] selective left and right coronary artery angiography, left coronary angiography, mechanical thrombectomy of the left anterior descending artery, balloon angioplasty of the mid region of the left anterior descending artery, stenting and angioplasty of the mid region of the left artery. 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 UDS + Fent, Amph and Benzo. Telemetry reviewed. vital signs Vital Sign Date Time Temp Pulse Resp B/P (MAP) Pulse Ox O2 Delivery O2 Flow Rate FiO2 03/18/25 22:20 71 138/100 03/18/25 21:00 97.4 17 100 97.4 03/18/25 20:22 Room Air* 0 21 Total Intake and Output 03/18/25 03/18/25 03/19/25 15:00 23:00 07:00 Intake Total 500 ml Output Total 451 ml Balance 49 ml medications Current Medications Medications Dose Ordered Sig/Jensen Route Start Time Stop Time Status Last Admin Dose Admin Acetaminophen 650 mg Q6HP PRN PO 03/17/25 13:00 03/18/25 02:38 650 MG Nitroglycerin 0.4 mg Q5MINP PRN SL 03/17/25 13:00 Morphine Sulfate 2 mg Q30M PRN IV 03/17/25 13:00 Duloxetine HCl 30 mg BID PO 03/17/25 22:00 03/18/25 21:20 30 MG Hydralazine HCl 100 mg BID PO 03/17/25 22:00 03/18/25 21:20 100 MG Losartan Potassium 100 mg DAILY PO 03/18/25 10:00 03/18/25 08:48 100 MG Labetalol HCl 10 mg Q2HPRN PRN IV 03/17/25 17:00 03/18/25 00:20 10 MG Aspirin 81 mg DAILY PO 03/18/25 10:00 03/18/25 08:47 81 MG Ticagrelor 90 mg BID PO 03/17/25 22:00 03/18/25 21:19 90 MG Atorvastatin Calcium 80 mg HS PO 03/17/25 22:00 9/22/25 21:20 80 MG Metoprolol Tartrate 25 mg BID PO 03/18/25 22:00 03/18/25 21:20 25 MG objective GENERAL: Alert and oriented x 3. No acute distress. EYES: PERRL, EOMI. Anicteric. HENT: Moist mucous membranes. LUNGS: Clear to auscultation bilaterally. CARDIOVASCULAR: Regular rate and rhythm. ABDOMEN: Soft, nontender and nondistended. EXTREMITIES: No edema. NEUROLOGIC: No focal neurological deficits. SKIN: Warm, dry. laboratory and microbiology Laboratory Tests 03/18/25 05:24 Test 03/18/25 05:24 Range/Units Serum Glucose 85 74-106 mg/dL Problem List STEMI. HTN. Assessment/Plan Continued all current supportive medical care. Echocardiogram. Aspirin, Lipitor, Metoprolol, Brilinta. Losartan, Hydralazine. IV Labetalol for SBP > 150. Morphine for pain management. Additional plan as per the hospital course. Plan discussed with: Patient CRYSTAL HARMON MD Mar 19, 2025 00:05
[2025-03-19 07:31] LABS: Anion Gap 7 (5-15); Carbon Dioxide 29 mmol/L (20-31); Chloride 105 mmol/L (98-107); Potassium 4.6 mmol/L (3.5-5.1); Sodium 141 mmol/L (136-145)
[2025-03-19 07:32] LABS: Calcium 8.7 mg/dL (8.7-10.4); Hematocrit 39.2 % (41.0-53.0); Hemoglobin 13.3 g/dL (13.5-17.5); Mean Corpuscular Hemoglobin 31.2 pg (28.0-32.0); Mean Corpuscular Volume 92.0 fL (80.0-100.0); Nucleated Red Blood Cells % 0.1 %
[2025-03-19 07:37] LABS: BUN/Creatinine Ratio 11.1 (10.0-20.0); Blood Urea Nitrogen 13 mg/dL (9-23); Glucose 88 mg/dL (74-106)
[2025-03-19 08:54] LABS: Triglycerides 69 mg/dL (< 150)
[2025-03-19 08:55] LABS: Cholesterol 119 mg/dL (< 200)
[2025-03-19 08:56] LABS: HDL Cholesterol 51 mg/dL (40-59)
--- NOTE | 2025-03-19 13:29 | DVHDS2 ---
Discharge Summary Date of Admission Mar 17, 2025 at 12:54 Date of Discharge: Mar 19, 2025 Labs/Diagnostic Data: Laboratory Results Test 03/19/25 06:13 03/18/25 11:33 03/18/25 05:24 03/17/25 12:16 White Blood Count 4.6 10^3/uL (4.4-10.8) Red Blood Count 4.26 10^6/uL (4.5-5.90) Hemoglobin 13.3 g/dL (13.5-17.5) Hematocrit 39.2 % (41.0-53.0) Mean Corpuscular Volume 92.0 fL (80.0-100.0) Mean Corpuscular Hemoglobin 31.2 pg (28.0-32.0) Mean Corpuscular Hemoglobin Concent 33.9 g/dL (32.0-36.0) Red Cell Distribution Width 14.3 % (11.8-14.3) Platelet Count 261 10^3/uL (140-450) Mean Platelet Volume 7.1 fL (6.9-10.8) Neutrophils (%) (Auto) 63.2 % (37.0-80.0) Lymphocytes (%) (Auto) 22.4 % (10.0-50.0) Monocytes (%) (Auto) 11.0 % (0.0-12.0) Eosinophils (%) (Auto) 2.9 % (0.0-7.0) Basophils (%) (Auto) 0.5 % (0.0-2.0) Neutrophils # (Auto) 2.9 10 ^3/uL (1.6-8.6) Lymphocytes # (Auto) 1.0 10 ^3/uL (0.4-5.4) Monocytes # (Auto) 0.5 10 ^3/uL (0-1.3) Eosinophils # (Auto) 0.1 10 ^3/uL (0-0.8) Basophils # (Auto) 0 10 ^3/uL (0-0.2) Nucleated Red Blood Cells 0.1 % Sodium Level 141 mmol/L (136-145) Potassium Level 4.6 mmol/L (3.5-5.1) Chloride Level 105 mmol/L (98-107) Carbon Dioxide Level 29 mmol/L (20-31) Anion Gap 7 (5-15) Blood Urea Nitrogen 13 mg/dL (9-23) Creatinine 1.17 mg/dL (0.700-1.30) Glomerular Filtration Rate Calc 72 mL/min (>90) BUN/Creatinine Ratio 11.1 (10.0-20.0) Serum Glucose 88 mg/dL (74-106) Calcium Level 8.7 mg/dL (8.7-10.4) Triglycerides Level 69 mg/dL (< 150) Cholesterol Level 119 mg/dL (< 200) LDL Cholesterol 52 mg/dL (< 100) HDL Cholesterol 51 mg/dL (40-59) Urine Opiates Screen Neg (NEGATIVE) Urine Fentanyl Screen Pos (NEGATIVE) Urine Barbiturates Screen Neg (NEGATIVE) Urine Phencyclidine Screen Neg (NEGATIVE) Urine Amphetamines Screen Pos (NEGATIVE) Urine Benzodiazepines Screen Pos (NEGATIVE) Urine Cocaine Screen Neg (NEGATIVE) Urine Cannabinoids Screen Neg (NEGATIVE) Total Bilirubin 0.6 mg/dL (0.2-1.0) Aspartate Amino Transferase (AST) 17 U/L (13-40) Alanine Aminotransferase (ALT) 10 U/L (7-40) Alkaline Phosphatase 76 U/L (46-116) Total Protein 6.4 g/dL (5.7-8.2) Albumin 3.6 g/dL (3.2-4.8) Prothrombin Time 10.3 sec (9.3-11.8) Prothrombin Time INR 0.97 (0.9-1.15) Activated Partial Thromboplast Time 28.5 SEC (24.5-34.5) Magnesium Level 2.1 mg/dL (1.6-2.6) Troponin I High Sensitivity 8 ng/L (</=54) Other Laboratory Tests 03/19/25 06:13 Brief Hx & Hospital Course: see dictated note Condition at Discharge: Fair Final Diagnosis/Problems List cad Discharge Disposition: Home Discharge Instruct/Medications Diet: Cardiac 2g Na,low cholest Activity: No Restrictions, As Tolerated Follow Up/Referral: fu with pcp/cardiology in 1 wk Medications: resume home meds except nifedepine script to pharmacy Scheduled Duloxetine HCl (Duloxetine HCl), 1 CAP PO BID, (Reported) Gabapentin (Gabapentin), 300 MG PO BID, (Reported) Hydralazine Hcl (Hydralazine Hcl), 1 TAB PO BID, (Reported) Losartan Potassium (Losartan Potassium), 1 TAB PO DAILY, (Reported) Pregabalin (Lyrica), 1 CAP PO BID, (Reported) Miscellaneous Medications Nifedipine (Nifedipine Er), 1, (Reported) Discontinued Medications Gabapentin (Gabapentin), PO, (Reported) Discharge Statement: "Patient was advised to return to the ER or call 911 if any headaches, dizziness, shortness of breath, chest pain, abdominal pain, bleeding, fevers, or worsening of medical condition. Patient was counseled about treatment plan, medications, possible side effects, patientverbalized understanding. All questions were answered to the best of my ability. This discharge took greater then 30 minutes in planning, reviewing documentation, counseling the patient, and discussing with other team members." ASSESSMENT ASSESSMENT Assessment cad Date of Service: Mar 19, 2025 Billing Provider: PORSHA VOGEL MD Common Visit Codes: [id number]/OBS DISCH DAY >30min PORSHA VOGEL MD Mar 19, 2025 13:29
[2025-03-19] MEDS ORDERED: TICA90TA PO (13:40)
[2025-03-19] MEDS ORDERED: METO25TA36 PO (13:40)
[2025-03-19] MEDS ORDERED: ATOR80TA PO (13:40)
[2025-03-19] MEDS ORDERED: ASPI-498 PO (13:40)
--- NOTE | 2025-03-19 13:42 | DVHDS ---
DATE OF DISCHARGE: 03/19/2025 HISTORY OF PRESENT ILLNESS: The patient is a 59-year-old gentleman who was admitted with complaints of chest pain, diaphoresis, and has history of hypertension and tobacco abuse. The patient's blood pressure at the time of admission was 164/116. HOSPITAL COURSE: The patient was seen in Cardiology consult by Dr. Radha Noguera. The patient underwent coronary angiography with angioplasty and stenting of the mid LAD. On the echocardiogram, he had an ejection fraction of about 50-55%. The patient's tox screen was positive for amphetamines. The patient's LDL was 52. The patient now is doing well. He will be discharged home to resume his home medications except for nifedipine and will also be on aspirin 81 mg daily, Brilinta 90 mg p.o. b.i.d., Toprol XL 25 mg daily, Lipitor 80 mg at bedtime. He is to follow up with his primary and Cardiology. I have discussed this in detail with the patient as well as his son. FINAL DIAGNOSES: Therefore: * Acute myocardial infarction, status post coronary angiography and stenting. * Hypertensive emergency. * Tobacco abuse. * Hyperlipidemia. * Alcohol abuse. * Drug abuse with amphetamines. * Left leg clubfoot deformity. * Acute renal failure, questionable vasomotor nephropathy. * Questionable acute diastolic heart failure. Time spent in discharge planning and review of plan with the patient and family was 39 minutes. Wai Fry MD JLN/EKT TID: [id number] RECEIPT: [id number]
--- NOTE | 2025-03-20 00:02 | DVHPN2 ---
Progress Note - Dictate Date Seen: Mar 19, 2025 Medical Necessity Reason Pt with a Central, PICC or Fol: No Subjective Patient was seen and evaluated in follow up. No overnight events. Patient reports feeling well today. Echo shows LV EF of 50-55%. Patient denies any cardiac symptoms. Patient is cardiac stable for discharge. Telemetry reviewed. vital signs Vital Sign Date Time Temp Pulse Resp B/P (MAP) Pulse Ox O2 Delivery O2 Flow Rate FiO2 03/19/25 16:51 97.5 90 12 160/98 (118) 94 97.5 03/19/25 08:05 Room Air* 0 21 Total Intake and Output 03/19/25 03/19/25 03/20/25 15:00 23:00 07:00 Intake Total 420 ml Balance 420 ml objective GENERAL: Alert and oriented x 3. No acute distress. EYES: PERRL, EOMI. Anicteric. HENT: Moist mucous membranes. LUNGS: Clear to auscultation bilaterally. CARDIOVASCULAR: Regular rate and rhythm. ABDOMEN: Soft, nontender and nondistended. EXTREMITIES: No edema. NEUROLOGIC: No focal neurological deficits. SKIN: Warm, dry. laboratory and microbiology Laboratory Tests 03/19/25 06:13 Test 03/19/25 06:13 Range/Units Serum Glucose 88 74-106 mg/dL Problem List STEMI. HTN. Assessment/Plan Continued all current supportive medical care. Aspirin, Lipitor, Metoprolol, Brilinta. Losartan, Hydralazine. IV Labetalol for SBP > 150. Morphine for pain management. Additional plan as per the hospital course. Plan discussed with: Patient CRYSTAL HARMON MD Mar 20, 2025 00:02
== END 2025-03-19 19:45 | disposition home or self-care (01) | DRG 174 ==
LOC: ER 12:10 → EDBD 12:10 → OVERFLOW 12:54 → ICU CENTRL 15:10 → DOU IN ICU 18:26 → ICU CENTRL 18:35 → TELE-WESTW 03-18 17:08
PROVIDERS: ADMIT Internal Medicine; ATTEND Internal Medicine
PROC: 027034Z Dilation of Coronary Artery, One Artery with Drug-eluting Intraluminal Device, Percutaneous Approach (ICD-10-PCS; principal; 2025-03-17)
PROC: 04HY32Z Insertion of Monitoring Device into Lower Artery, Percutaneous Approach (ICD-10-PCS; 2025-03-17)
PROC: 4A023N7 Measurement of Cardiac Sampling and Pressure, Left Heart, Percutaneous Approach (ICD-10-PCS; 2025-03-17)
PROC: B211YZZ Fluoroscopy of Multiple Coronary Arteries using Other Contrast (ICD-10-PCS; 2025-03-17)
PROC: B215YZZ Fluoroscopy of Left Heart using Other Contrast (ICD-10-PCS; 2025-03-17)
PROC: B240ZZ3 Ultrasonography of Single Coronary Artery, Intravascular (ICD-10-PCS; 2025-03-17)
PROC: 02C03ZZ Extirpation of Matter from Coronary Artery, One Artery, Percutaneous Approach (ICD-10-PCS; 2025-03-17)
PROC: B41GYZZ Fluoroscopy of Left Lower Extremity Arteries using Other Contrast (ICD-10-PCS; 2025-03-17)
DX: I21.09 ST elevation (STEMI) myocardial infarction involving other coronary artery of anterior wall (principal); N17.0 Acute kidney failure with tubular necrosis; I50.31 Acute diastolic (congestive) heart failure; I11.0 Hypertensive heart disease with heart failure; I16.1 Hypertensive emergency; E78.5 Hyperlipidemia, unspecified; F10.10 Alcohol abuse, uncomplicated; F17.210 Nicotine dependence, cigarettes, uncomplicated; I25.10 Atherosclerotic heart disease of native coronary artery without angina pectoris; F15.10 Other stimulant abuse, uncomplicated; Y90.9 Presence of alcohol in blood, level not specified; Z88.8 Allergy status to other drugs, medicaments and biological substances; Q66.89 Other specified congenital deformities of feet; Z91.199 Patient's noncompliance with other medical treatment and regimen due to unspecified reason; Z79.82 Long term (current) use of aspirin; Z79.899 Other long term (current) drug therapy
CPT/HCPCS: 36415; 71045; 75710; 80048; 80053; 80061; 80307; 83735; 84484; 85025; 85610; 85730; 87081; 92941; 92973; 92978; 93005; 93306; 93458; 96365; 99152; G0378; J2250; Q9967

== ENCOUNTER 2025-06-20 02:41 | Inpatient (IN) | payer MEDICAID ==
[~2025-06-20] VITALS: Ht 185.4 cm; Wt 93.7 kg
[2025-06-20] VITALS (7 sets, daily range): BP systolic 132–159; BP diastolic 94–114; PULSE 68–76; RESP 14–19; TEMP 97.5–98.3; O2SAT 96–99
[~2025-06-20 02:41] MED LIST changes: +ASPI-498 PO; +ATOR80TA PO; +METO25TA36 PO; +PREG100C PO; +TICA90TA PO
[2025-06-20] MEDS: LABETALOL HCL 20 MG/4 ML VL IV ONE ×2 (03:22→03:33)
[2025-06-20] MEDS: MORPHINE SULFATE INJ 2 MG/ml SYRG IV ONE (03:32)
[2025-06-20] MEDS: MORPHINE SULFATE 4 MG/ML SYR/VIAL ONE (03:34)
--- NOTE | 2025-06-20 03:47 | DVH ---
CHEST RADIOGRAPH INDICATION: cp TECHNIQUE: Single frontal view of the chest was obtained COMPARISON: XY CHEST PORTABLE on DOS: 03/17/25, CHEST TWO VIEWS ROUTINE on DOS: 03/08/21, CXR2 on DOS: 03/08/21 FINDINGS: Lines and Tubes: None Lungs: Clear Pleura: No effusion. No pneumothorax. Cardiomediastinal contours: Unremarkable Bones: Unremarkable IMPRESSION: 1. No acute disease.
--- NOTE | 2025-06-20 03:48 | DVH ---
EXAM: CT HEAD WITHOUT CONTRAST INDICATION: Severe headache, hypertension TECHNIQUE: CT of the head without intravenous contrast. Radiation Dose : 1. Head: CT Dose: CTDI volume is 65.59 mGy. Dose-length product is 1292.23 mGy*cm The dose indicators for CT are the volume Computed Tomography (CT) Dose Index (CTDIvol) and the Dose Length Product (DLP), and are measured in units of mGy and mGy-cm, respectively. These indicators are not patient dose, but values generated from the CT scanner acquisition factors. The report includes radiation exposure data for exposures received during this examination. COMPARISON: CT BRAIN on DOS: 10/14/23 FINDINGS: There is no evidence of acute intracranial hemorrhage, extra-axial collection, mass effect, midline shift, herniation or hydrocephalus. The ventricles, sulci and cisterns are age appropriate. The peña-white differentiation is intact. Patchy periventricular and subcortical white matter hypoattenuation is nonspecific but may be related to small vessel ischemic disease. Left maxillary and ethmoid mucosal sinus disease. The remaining visualized paranasal sinuses and mastoid air cells are clear. The surrounding soft tissues and osseous structures are unremarkable. IMPRESSION: 1. No acute intracranial abnormality. Radiation optimization: All CT scans at this facility use at least one of these dose optimization techniques: automated exposure control mA and/or kV adjustment per patient size (includes targeted exams where dose is matched to clinical indication) or iterative reconstruction.
[2025-06-20 03:52] LABS: Hematocrit 41.0 % (41.0-53.0); Hemoglobin 13.6 g/dL (13.5-17.5); Mean Corpuscular Hemoglobin 29.9 pg (28.0-32.0); Mean Corpuscular Volume 90.4 fL (80.0-100.0); Nucleated Red Blood Cells % 0.1 %
[2025-06-20 04:02] LABS: Potassium 3.9 mmol/L (3.5-5.1); Sodium 140 mmol/L (136-145)
[2025-06-20 04:03] LABS: Anion Gap 8 (5-15); Calcium 9.3 mg/dL (8.7-10.4); Carbon Dioxide 25 mmol/L (20-31)
[2025-06-20 04:08] LABS: BUN/Creatinine Ratio 11.7 (10.0-20.0); Blood Urea Nitrogen 13 mg/dL (9-23); Glucose 79 mg/dL (74-106)
[2025-06-20 04:29] LABS: Chloride 107 mmol/L (98-107)
--- NOTE | 2025-06-20 04:57 | ED.PDOC ---
History of Present Illness HPI Comments 59-year-old male who is brought in by for chief complaint of hypertension, with associated headache. Significant history for HLD, HTN, STEMI with cardiac stents, left leg clubfoot deformity, and polysubstance abuse. Patient reports on checking and nose in his blood pressure being elevated, significantly, after gradual onset of headache 2-1/2 hours prior to ED arrival. He reports on being without his HTN medications for the past 1.5x day. He denies any chest pain, shortness of breath, or further acute symptoms. REVIEW OF SYSTEMS: General: No fever, no chills, or fatigue HEENT: No sore throat, no earache, no congestion, no neck pain. Cardiac: Hypertension. No chest pain. No palpitations. Lungs: No shortness of breath, no cough. GI: No nausea, no vomiting, no diarrhea, no constipation, no abdominal pain : No dysuria, frequency, or urgency. No hematuria. Musculoskeletal: No joint pain , no joint swelling, no extremity edema. Skin: No rash, no itching. Neuro: headache, no dizziness, no weakness (And as stated in HPI) PHYSICAL EXAM: General: Awake, alert and oriented. No acute distress. Skin: Skin in warm, dry and intact. Appropriate color for ethnicity. HEENT: The head is normocephalic and atraumatic. Conjunctivae are clear without exudates or hemorrhage. Sclera is non-icteric. Eyelids are normal in appearance without swelling or lesions. Oral mucosa is pink and moist Neck: The neck is supple with normal range of motion. No JVD. Cardiac: Heart rate and rhythm are normal. No murmurs, gallops, or rubs are auscultated. Respiratory: No signs of respiratory distress. Lung sounds are clear in all lobes bilaterally without rales, rhonchi, or wheezes. Abdominal: Abdomen is soft, non-tender without distention, guarding or rigidity. Bowel sounds are present and normoactive in all four quadrants. Extremities: Lower extremities without edema. Left lower extremity atrophy. Neurological: The patient is awake, alert and oriented to person, place, and time with normal speech. Speech is clear. There is no facial asymmetry. Psychiatric: Appropriate mood and affect. Good judgement and insight. Chief Complaint: High Blood Pressure Time Seen by MD: 03:00 Primary Care Provider: ? Reviewed Notes: Nurses Notes, Medications, Allergies Allergies: Coded Allergies: Lisinopril (Verified Allergy, Unknown, 03/08/21) Home Meds Active Scripts Atorvastatin Calcium (Lipitor) 80 Mg Tab, 80 MG PO QPM for 30 Days, #30 TAB 4 Refills Prov:PORSHA VOGEL MD 03/19/25 Metoprolol Succinate (Toprol Xl) 25 Mg Tab, 25 MG PO DAILY for 30 Days, #30 TAB 4 Refills Prov:PORSHA VOGEL MD 03/19/25 Ticagrelor Base (BRILINTA) 90 Mg Tab, 90 MG PO BID for 30 Days, #60 TAB 4 Refills Prov:PORSHA VOGEL MD 03/19/25 Aspirin (ASPIRIN 81) 81 Mg Tab, 81 MG PO DAILY for 30 Days, #30 TAB 4 Refills Prov:PORSHA VOGEL MD 03/19/25 Reported Medications Pregabalin (Lyrica) 100 Mg Cap, 1 CAP PO BID, #60 CAP 2 Refills 03/17/25 Gabapentin (Gabapentin) 300 Mg Cap, 300 MG PO BID for 30 Days, MG 03/17/25 Nifedipine (Nifedipine Er) 90 Mg Tab, 1 10/14/23 Duloxetine HCl (Duloxetine HCl) 30 Mg Cap, 1 CAP PO BID 10/14/23 Hydralazine Hcl (Hydralazine Hcl) 100 Mg Tab, 1 TAB PO BID 10/14/23 Losartan Potassium (Losartan Potassium) 100 Mg Tab, 1 TAB PO DAILY 10/14/23 Information Source: Patient, Spouse Mode of Arrival: Ambulatory Severity: Moderate Timing: Hours Duration: Since onset Prehospital treatment: Other (See HPI) Past Medical History PAST MEDICAL HISTORY: High Lipids, HTN, [place] (STEMI) Past Medical History (Other): Left leg clubfoot deformity Surgical History (Other): Cardiac stents Family History Family History: Reviewed,noncontributory to illness, No family hx of Cancer, No family hx of DM, No family hx of Heart miguel a, No family hx of HTN, No family hx ofKidney miguel a, No family hx of Liver miguel a, No family hx of Lung miguel a, No family hx of Stroke Social History Smoker: Cigarettes Alcohol: Occasionally Drugs: Marijuana, Methamphetamine Lives In: Home Was a procedure done? Was a procedure done?: No Differential Dx Considerations may include: Differential diagnoses considered include but are not limited to temporal arteritis, acute angle closure glaucoma, encephalitis, bacterial meningitis, carbon monoxide poisoning, posttraumatic headache, SAH, subdural hematoma, cervical artery dissection, venous sinus thrombosis, CVA, migraine headache, cluster headache, tension headache, TMJ disorder, frontal sinusitis, cervical spondylosis, intracranial mass, pituitary apoplexy. X-Ray, Labs, Meds, VS Vital Signs Date Time Temp Pulse Resp B/P (MAP) Pulse Ox O2 Delivery O2 Flow Rate FiO2 06/20/25 05:33 175/123 06/20/25 04:33 72 179/123 06/20/25 04:02 71 12 181/129 06/20/25 04:00 98.4 71 12 181/129 (146) 93 98.4 06/20/25 03:33 76 200/136 06/20/25 03:32 71 16 200/136 06/20/25 02:58 81 17 209/129 (155) 97 06/20/25 02:58 Room Air* 0 21 06/20/25 02:43 98.1 75 18 218/138 98 98.1 Lab Test 06/20/25 04:44 06/20/25 03:29 Range/Units Troponin I High Sensitivity 23 27 </=54 ng/L White Blood Count 5.9 4.4-10.8 10^3/uL Red Blood Count 4.53 4.5-5.90 10^6/uL Hemoglobin 13.6 13.5-17.5 g/dL Hematocrit 41.0 41.0-53.0 % Mean Corpuscular Volume 90.4 80.0-100.0 fL Mean Corpuscular Hemoglobin 29.9 28.0-32.0 pg Mean Corpuscular Hemoglobin Concent 33.1 32.0-36.0 g/dL Red Cell Distribution Width 14.7 H 11.8-14.3 % Platelet Count 248 140-450 10^3/uL Mean Platelet Volume 6.8 L 6.9-10.8 fL Neutrophils (%) (Auto) 71.9 37.0-80.0 % Lymphocytes (%) (Auto) 17.0 10.0-50.0 % Monocytes (%) (Auto) 8.7 0.0-12.0 % Eosinophils (%) (Auto) 2.2 0.0-7.0 % Basophils (%) (Auto) 0.2 0.0-2.0 % Neutrophils # (Auto) 4.2 1.6-8.6 10 ^3/uL Lymphocytes # (Auto) 1.0 0.4-5.4 10 ^3/uL Monocytes # (Auto) 0.5 0-1.3 10 ^3/uL Eosinophils # (Auto) 0.1 0-0.8 10 ^3/uL Basophils # (Auto) 0 0-0.2 10 ^3/uL Nucleated Red Blood Cells 0.1 % Sodium Level 140 136-145 mmol/L Potassium Level 3.9 3.5-5.1 mmol/L Chloride Level 107 98-107 mmol/L Carbon Dioxide Level 25 20-31 mmol/L Anion Gap 8 5-15 Blood Urea Nitrogen 13 9-23 mg/dL Creatinine 1.11 0.700-1.30 mg/dL Glomerular Filtration Rate Calc 77 >90 mL/min BUN/Creatinine Ratio 11.7 10.0-20.0 Serum Glucose 79 74-106 mg/dL Calcium Level 9.3 8.7-10.4 mg/dL B-Type Natriuretic Peptide 18.21 0-100 pg/mL Current Medications Medications (Trade) Dose Ordered Sig/Jensen Route Start Time Stop Time Status Last Admin Morphine Sulfate 2 mg ONCE ONCE IV 06/20/25 03:15 06/20/25 03:16 DC 06/20/25 03:32 Labetalol HCl (Labetalol HCl) 10 mg ONCE ONCE IV 06/20/25 03:15 06/20/25 03:16 DC 06/20/25 03:33 Hydralazine HCl (Apresoline Injection) 10 mg ONCE ONCE IV 06/20/25 05:15 06/20/25 05:17 DC 06/20/25 05:33 Ketorolac Tromethamine (Toradol Injection) 15 mg ONCE ONCE IV 06/20/25 05:15 06/20/25 05:17 DC 06/20/25 05:36 Acetaminophen (Tylenol Tablet) 1,000 mg ONCE ONCE PO 06/20/25 05:15 06/20/25 05:17 DC 06/20/25 05:32 Time of 1ST Reevaluation: 04:56 Reevaluation 1ST: Unchanged Patient Education/Counseling: Other (Need for admission) Family Education/Counseling: Other (Need for admission) SEPSIS Sepsis Screen Date sepsis recognized/suspect: Jun 20, 2025 Time Sepsis recognized/suspect: 257 Recent Procedure: No On Antibiotic Therapy: No Respiratory Rate >20: No Heart Rate >90: No Temp<36 C (96.8 F) or >38.3 C: No SBP <90 or MAP <65 mmHG: No New Acute Mental Status Change: No Is the patient on CPAP, BIPAP,: No Physician Orders Electrocardigram (06/20/25 03:02) Chest Xray 1 View (06/20/25 03:02) Vital Signs Q1HR (06/20/25 03:02) Saline Lock (06/20/25 03:02) Bag Adjuster (06/20/25 ) Electrocardigram (06/20/25 06:02) Troponin-I Hs (06/20/25 06:02) Head Without Contrast (06/20/25 03:02) Vital Signs Date Time Temp Pulse Resp B/P (MAP) Pulse Ox O2 Delivery O2 Flow Rate FiO2 06/20/25 05:33 175/123 06/20/25 04:33 72 179/123 06/20/25 04:02 71 12 181/129 06/20/25 04:00 98.4 71 12 181/129 (146) 93 98.4 06/20/25 03:33 76 200/136 06/20/25 03:32 71 16 200/136 06/20/25 02:58 81 17 209/129 (155) 97 06/20/25 02:58 Room Air* 0 21 06/20/25 02:43 98.1 75 18 218/138 98 98.1 Laboratory Tests Test 06/20/25 03:29 White Blood Count 5.9 10^3/uL (4.4-10.8) Medications Medications Dose Ordered Sig/Jensen Route Start Time Stop Time Status Last Admin Dose Admin Acetaminophen 1,000 mg ONCE ONCE PO 06/20/25 05:15 06/20/25 05:17 DC 06/20/25 05:32 Hydralazine HCl 10 mg ONCE ONCE IV 06/20/25 05:15 06/20/25 05:17 DC 06/20/25 05:33 Ketorolac Tromethamine 15 mg ONCE ONCE IV 06/20/25 05:15 06/20/25 05:17 DC 06/20/25 05:36 Labetalol HCl 10 mg ONCE ONCE IV 06/20/25 03:15 06/20/25 03:16 DC 06/20/25 03:33 Morphine Sulfate 2 mg ONCE ONCE IV 06/20/25 03:15 06/20/25 03:16 DC 06/20/25 03:32 Departure 1 Departure Time of Disposition: 04:56 Impression: Primary Impression: Hypertensive urgency Disposition: ADMITTED INPATIENT Condition: Stable Comments MDM: 59-year-old male who presented with headache and hypertensive urgency. Patient admitted to hospitalist service for further treatment, evaluation and mo nitoring. Extensive evaluation was performed in attempt to identify or rule out: (See differential diagnosis section) The following tests were ordered, and results were reviewed by me and discussed with patient: (See diagnostic results section) The following test were independently interpreted by me: Troponin, BNP, EKG, BMP, CBC I reviewed and agreed with the following test results read by other providers: CT head without contrast, chest x-ray I reviewed the following notes from the pt's past medical encounters: March 17, 2025 encounter for STEMI Additional information was gathered from interviewing the following independent historians: Spouse Discussion of management or test interpretation with external physician/other qualified health primary care sales representative: N/A Addressed [ ]one or more chronic illnesses with severe exacerbation, progression, or side effects of treatment: [ ]an acute or chronic illness that poses a threat to life or bodily function: [ ] Decision regarding hospitalization or escalation of hospital level of care: Risk and benefits of admission for further treatment of patient's condition was considered. Due to patient's current clinical condition, high risk of decline and poor outcome if discharged and need for further inpatient management and monitoring, patient will be admitted to the hospital. Drug therapy requiring intensive monitoring for toxicity: N/A Parenteral controlled substances: N/A Decision regarding elective major surgery with identified patient or procedure risk factors: N/A Decision regarding emergency major surgery: N/A Decision not to resuscitate or to de-escalate care because of poor prognosis: N/A Diagnosis or treatment significantly limited by social determinants of health: N/A Decision regarding hospitalization or escalation of hospital level of care: Risks and benefits of admission for further treatment of patient's condition was considered however due to patient's stable condition patient will be discharged to follow up closely or return to care for worsening of condition or inability to follow up. Critical Care Note Critical Care Time?: No Stability Stability form required: No Heart Score Heart Score: Heart Score Response (Comments) Value History N/A 0 EKG N/A 0 Age N/A 0 Risk Factors N/A 0 Troponin N/A 0 Total 0 I personally scribed for ENRIQUE ISIDRO MD ([email or web address]) on 06/20/25 at 06:38. Electronically submitted by Aristides Higgins ([email or web address]). ENRIQUE ISIDRO MD Jun 20, 2025 04:57
[2025-06-20] MEDS: ACETAMINOPHEN 325 MG TAB PO ONE (05:32)
[2025-06-20] MEDS: hydrALAZINE HCL 20 MG/ML VL IV ONE (05:33)
[2025-06-20] MEDS: KETOROLAC TROMETH 30 MG/ML 1ML VIAL IV ONE (05:36)
[2025-06-20] MEDS ORDERED: NITROGLYCERIN 0.4 MG SL TAB SL PRN (05:45)
[2025-06-20] MEDS ORDERED: DOCUSATE SOD 100 MG CAP PO PRN (05:45)
[2025-06-20] MEDS ORDERED: MORPHINE SULFATE INJ 2 MG/ml SYRG IV PRN (05:45)
[2025-06-20] MEDS ORDERED: ACETAMINOPHEN 325 MG TAB PO PRN (05:45)
--- NOTE | 2025-06-20 05:50 | DVHHP2 ---
History of Present Illness Reason for Visit: Hypertensive urgency History of Present Illness The patient is a 59-year-old male with past medical history of OR, hypertension, hyperlipidemia, and left leg clubfoot deformity who presented to [facility] ED with complaint of elevated blood pressure. Patient reports that he has been experiencing elevated blood pressure associated with headache for the past 2 days. Patient was seen and evaluated in the ED, laboratory data shows WBC 5.9, platelets 248, sodium 140, potassium 3.9, BUN 19, creatinine 1.11, GFR 77, glucose 79, BNP 18.21, troponin 23, blood pressure 218/138 trending down to 161/108, heart rate 72, temperature 98.4 F, O2 saturation 97% on room air. Head CT showed no acute intracranial abnormality. Patient was given hydralazine 20 mg IV x1, please see medication orders section in the computer. On my assessment, patient denied chest pain, no headache, dizziness, diaphoresis, shortness of breaths, no diarrhea, nausea, vomiting, fever, no chills. Patient was admitted for further evaluation and medical management. Past Medical History High Lipids, HTN, OR (STEMI), Left leg clubfoot deformity Past Surgical History Cardiac stents Family History Reviewed, noncontributory to the management of this case. Past Social History The patient lives at home, smokes cigarettes, drinks alcohol occasionally, uses marijuana and methamphetamine. Review of Systems Constitutional: Yes: Weakness; No: Fever, Chills, Sweats, Malaise, Other Eyes: No: Pain, Vision change, Conjunctivae inflammation, Eyelid inflammation, Other, Redness ENT: No: Ear pain, Ear discharge, Nose pain, Nose discharge, Nose congestion, Mouth pain, Mouth swelling, Throat pain, Throat swelling, Other Respiratory: No: Cough, Dry, Shortness of breath, SOB with excertion, Wheezing, Hemoptysis, Pleuritic Pain, Sputum, Wheezing, Other Cardiovascular: Other (Hypertension); No: Chest Pain, Palpitations, Orthopnea, Paroxysmal Noc. Dyspnea, Edema, Lt Headedness Gastrointestinal: No: Nausea, Vomiting, Abdominal Pain, Diarrhea, Constipation, Melena, Hematochezia, Other Genitourinary: No Dysuria, No Frequency, No Incontinence, No Hematuria, No Retention, No Other Musculoskeletal: No: other, neck pain, shoulder pain, arm pain, back pain, hand pain, leg pain, foot pain Skin: No: Rash, Lesions, Jaundice, Bruising, Other Neurological: Other (Headache); No: Weakness, Numbness, Incoordination, Change in speech, Confusion, Seizures Allergies: Coded Allergies: Lisinopril (Verified Allergy, Unknown, 03/08/21) Medications Current Medications Medications Dose Ordered Sig/Jensen Route Start Time Stop Time Status Last Admin Dose Admin Amlodipine Besylate 10 mg DAILY PO 06/20/25 10:00 UNV Losartan Potassium 50 mg DAILY PO 06/20/25 10:00 UNV Hydralazine HCl 10 mg Q6HP PRN IV 06/20/25 05:45 UNV Aspirin 81 mg DAILY PO 06/20/25 10:00 UNV Atorvastatin Calcium 20 mg HS PO 06/20/25 22:00 UNV Sodium Chloride 10 ml Q8HR IV 06/20/25 06:00 UNV Exam Vital Signs Vital Signs Date Time Temp Pulse Resp B/P (MAP) Pulse Ox O2 Delivery O2 Flow Rate FiO2 06/20/25 05:33 175/123 06/20/25 04:02 71 12 06/20/25 04:00 98.4 93 98.4 06/20/25 02:58 Room Air* 0 21 General Appearance: Alert, Oriented X3, Cooperative, No acute distress HEENT: Atraumatic, PERRLA, EOMI, Mucous membr. moist/pink Respiratory: Clear to auscultation, Normal air movement Cardiovascular: Regular rate, Normal S1, Normal S2, No murmurs Abdominal: Normal bowel sounds, Soft, No tenderness, No hepatospenomegaly, No masses Extremities: No clubbing, No cyanosis, No edema, Normal pulses, No tenderness/swelling Skin: No rashes, No significant lesion Neuro: Normal speech, Normal tone, Sensation intact, Cranial nerves 3-12 NL, Reflexes 2+, Other (Generalized weakness) Psych/Mental Status: Mental status NL, Mood NL Labs/Xrays Labs Test 06/20/25 04:44 06/20/25 03:29 Range/Units Troponin I High Sensitivity 23 </=54 ng/L White Blood Count 5.9 4.4-10.8 10^3/uL Red Blood Count 4.53 4.5-5.90 10^6/uL Hemoglobin 13.6 13.5-17.5 g/dL Hematocrit 41.0 41.0-53.0 % Mean Corpuscular Volume 90.4 80.0-100.0 fL Mean Corpuscular Hemoglobin 29.9 28.0-32.0 pg Mean Corpuscular Hemoglobin Concent 33.1 32.0-36.0 g/dL Red Cell Distribution Width 14.7 H 11.8-14.3 % Platelet Count 248 140-450 10^3/uL Mean Platelet Volume 6.8 L 6.9-10.8 fL Neutrophils (%) (Auto) 71.9 37.0-80.0 % Lymphocytes (%) (Auto) 17.0 10.0-50.0 % Monocytes (%) (Auto) 8.7 0.0-12.0 % Eosinophils (%) (Auto) 2.2 0.0-7.0 % Basophils (%) (Auto) 0.2 0.0-2.0 % Neutrophils # (Auto) 4.2 1.6-8.6 10 ^3/uL Lymphocytes # (Auto) 1.0 0.4-5.4 10 ^3/uL Monocytes # (Auto) 0.5 0-1.3 10 ^3/uL Eosinophils # (Auto) 0.1 0-0.8 10 ^3/uL Basophils # (Auto) 0 0-0.2 10 ^3/uL Nucleated Red Blood Cells 0.1 % Sodium Level 140 136-145 mmol/L Potassium Level 3.9 3.5-5.1 mmol/L Chloride Level 107 98-107 mmol/L Carbon Dioxide Level 25 20-31 mmol/L Anion Gap 8 5-15 Blood Urea Nitrogen 13 9-23 mg/dL Creatinine 1.11 0.700-1.30 mg/dL Glomerular Filtration Rate Calc 77 >90 mL/min BUN/Creatinine Ratio 11.7 10.0-20.0 Serum Glucose 79 74-106 mg/dL Calcium Level 9.3 8.7-10.4 mg/dL B-Type Natriuretic Peptide 18.21 0-100 pg/mL PATIENT: [place] BETTENCOURT ACCT: [id number] UNIT: [id number] : 1965 LOC: ER ROOM / BED: / AGE / SEX: 59 / M ADM STATUS: REG ER SERVICE 1 ORDERING PHYSICIAN: ENRIQUE ISIDRO MD PROCEDURE(s): HWOCT - HEAD WITHOUT CONTRAST REASON: Severe headache, hypertension ORDER NUMBER(s): [id number], ACCESSION NUMBER(s): [id number] EXAM: CT HEAD WITHOUT CONTRAST INDICATION: Severe headache, hypertension TECHNIQUE: CT of the head without intravenous contrast. Radiation Dose: 1. Head: CT Dose: CTDI volume is 65.59 mGy. Dose-length product is 1292.23 mGy*cm The dose indicators for CT are the volume Computed Tomography (CT) Dose Index (CTDIvol) and the Dose Length Product (DLP), and are measured in units of mGy and mGy-cm, respectively. These indicators are not patient dose, but values generated from the CT scanner acquisition factors. The report includes radiation exposure data for exposures received during this examination. COMPARISON: CT BRAIN on DOS: 10/14/23 FINDINGS: There is no evidence of acute intracranial hemorrhage, extra-axial collection, mass effect, midline shift, herniation or hydrocephalus. The ventricles, sulci and cisterns are age appropriate. The peña-white differentiation is intact. Patchy periventricular and subcortical white matter hypoattenuation is nonspecific but may be related to small vessel ischemic disease. Left maxillary and ethmoid mucosal sinus disease. The remaining visualized paranasal sinuses and mastoid air cells are clear. The surrounding soft tissues and osseous structures are unremarkable. IMPRESSION: 1. No acute intracranial abnormality. ORDERING PHYSICIAN: ENRIQUE ISIDRO MD PROCEDURE(s): CXR1 - CHEST XRAY 1 VIEW REASON: cp ORDER NUMBER(s): [id number], ACCESSION NUMBER(s): [id number] CHEST RADIOGRAPH INDICATION: cp TECHNIQUE: Single frontal view of the chest was obtained COMPARISON: XY CHEST PORTABLE on DOS: 03/17/25, CHEST TWO VIEWS ROUTINE on DOS: 03/08/21, CXR2 on DOS: 03/08/21 FINDINGS: Lines and Tubes: None Lungs: Clear Pleura: No effusion. No pneumothorax. Cardiomediastinal contours: Unremarkable Bones: Unremarkable IMPRESSION: 1. No acute disease. SEPSIS Sepsis Screen Date sepsis recognized/suspect: Jun 20, 2025 Time Sepsis recognized/suspect: 0258 Recent Procedure: No On Antibiotic Therapy: No Respiratory Rate >20: No Heart Rate >90: No Temp<36 C (96.8 F) or >38.3 C: No SBP <90 or MAP <65 mmHG: No New Acute Mental Status Change: No Is the patient on CPAP, BIPAP,: No Physician Orders Electrocardigram (06/20/25 03:02) Chest Xray 1 View (06/20/25 03:02) Vital Signs Q1HR (06/20/25 03:02) Saline Lock (06/20/25 03:02) Project Management Advisor (06/20/25 ) Electrocardigram (06/20/25 06:02) Troponin-I Hs (06/20/25 06:02) Head Without Contrast (06/20/25 03:02) Amlodipine Tablet (Norvasc Tablet) (06/20/25 05:45) Amlodipine Tablet (Norvasc Tablet) (06/20/25 10:00) Losartan Tablet (Cozaar Tablet) (06/20/25 10:00) Hydralazine Injection (Apresoline Inject (06/20/25 05:45) Aspirin Chewable Tablet (06/20/25 10:00) Atorvastatin (Lipitor) (06/20/25 22:00) Admit (06/20/25 05:33) Allergies (06/20/25 05:33) Code Status (06/20/25 05:33) Sodium Chloride Lock (Saline Lock Ns) (06/20/25 06:00) Oxygen Per Hour (06/20/25 05:33) Hydrocodone-Acet 5/325mg Tab ([place] 5/32 (06/20/25 05:45) Ondansetron Hcl (Zofran) (06/20/25 05:45) Docusate Sodium Capsule (Colace Capsule) (06/20/25 05:45) Complete Blood Count (06/21/25 04:00) Comprehensive Metabolic Panel (06/21/25 04:00) Cardiac Diet-2gna,Lofat,Lochol (06/20/25 Breakfast) Condition: Serious (06/20/25 05:33) Acetaminophen Tablet (Tylenol Tablet) (06/20/25 05:45) Bedrest With Bathroom Privileg (06/20/25 05:33) Maintain Bed Rest (06/20/25 05:33) Sequential Compression Device (06/20/25 ) Nitroglycerin Sublingual (Ntrostat Subli (06/20/25 05:45) Morphine Sulfate Injection (06/20/25 05:45) Stat Ekg For Chest Pain (06/20/25 05:33) Notify Md Of Changes From Base (06/20/25 05:33) Director Skills For 24 Hours (06/20/25 05:33) Emergency Dysrhythmia Protocol (06/20/25 05:33) Rhythm Strips Once Every Shift (06/20/25 05:33) Oxygen By Nasal Cannula (06/20/25 05:33) Vital Signs Date Time Temp Pulse Resp B/P (MAP) Pulse Ox O2 Delivery O2 Flow Rate FiO2 06/20/25 05:33 175/123 06/20/25 04:02 71 12 181/129 06/20/25 04:00 98.4 71 12 181/129 (146) 93 98.4 06/20/25 03:33 76 200/136 06/20/25 03:32 71 16 200/136 06/20/25 02:58 81 17 209/129 (155) 97 06/20/25 02:58 Room Air* 0 21 06/20/25 02:43 98.1 75 18 218/138 98 98.1 Laboratory Tests Test 06/20/25 03:29 White Blood Count 5.9 10^3/uL (4.4-10.8) Medications Medications Dose Ordered Sig/Jensen Route Start Time Stop Time Status Last Admin Dose Admin Acetaminophen 1,000 mg ONCE ONCE PO 06/20/25 05:15 06/20/25 05:17 DC 06/20/25 05:32 1,000 MG Hydralazine HCl 10 mg ONCE ONCE IV 06/20/25 05:15 06/20/25 05:17 DC 06/20/25 05:33 10 MG Ketorolac Tromethamine 15 mg ONCE ONCE IV 06/20/25 05:15 06/20/25 05:17 DC 06/20/25 05:36 15 MG Labetalol HCl 10 mg ONCE ONCE IV 06/20/25 03:15 06/20/25 03:16 DC 06/20/25 03:33 10 MG Morphine Sulfate 2 mg ONCE ONCE IV 06/20/25 03:15 06/20/25 03:16 DC 06/20/25 03:32 2 MG Assessment/Plan Assessment/Plan Hypertensive urgency Headache Generalized weakness Plan 1. Admit to telemetry unit 2. Breathing treatment 3. Pain control management 4. Management of fluids and electrolytes 5. Consultation for hospitalist 6. Diagnostic tests head CT 7. DVT prophylaxis-on SCDs 8. Repeat labs CBC, CMP in a.m. 9. Continue with current medical management 10. Treatment plan discussed with patient and RN. Patient verbalized understanding. Plan discussed with: Patient, Other (RN) My Orders Orders - HUBERT SOL DNP Procedure Category Date Status Time Amlodipine Tablet PHA 06/20/25 Transmitted (Norvasc Tablet) 05:45 Amlodipine Tablet PHA 06/20/25 Transmitted (Norvasc Tablet) 10:00 Losartan Tablet PHA 06/20/25 Transmitted (Cozaar Tablet) 10:00 Hydralazine Injection PHA 06/20/25 Transmitted (Apresoline Inject 05:45 Aspirin Chewable PHA 06/20/25 Transmitted Tablet 10:00 Atorvastatin (Lipitor) PHA 06/20/25 Transmitted 22:00 Admit ADMIT 06/20/25 Transmitted 05:33 Allergies CHRIS 06/20/25 Transmitted 05:33 Code Status CODE 06/20/25 Transmitted 05:33 Sodium Chloride Lock PHA 06/20/25 Transmitted (Saline Lock Ns) 06:00 Oxygen Per Hour RT 06/20/25 Transmitted 05:33 Hydrocodone-Acet PHA 06/20/25 Transmitted 5/325mg Tab ([place] 05:45 Ondansetron Hcl PHA 06/20/25 Transmitted (Zofran) 05:45 Docusate Sodium PHA 06/20/25 Transmitted Capsule (Colace 05:45 Complete Blood Count LAB 06/21/25 Verified 04:00 Comprehensive LAB 06/21/25 Verified Metabolic Panel 04:00 Cardiac DIET 06/20/25 Transmitted Diet-2gna,Lofat,Lochol Breakfast Condition: Serious CHRIS 06/20/25 Transmitted 05:33 Acetaminophen Tablet PHA 06/20/25 Transmitted (Tylenol Tablet) 05:45 Bedrest With Bathroom CHRIS 06/20/25 Transmitted Privileg 05:33 Maintain Bed Rest CHRSI 06/20/25 Transmitted 05:33 Sequential CHRIS 06/20/25 Transmitted Compression Device Nitroglycerin PHA 06/20/25 Transmitted Sublingual (Ntrostat 05:45 Morphine Sulfate PHA 06/20/25 Transmitted Injection 05:45 Stat Ekg For Chest CHRIS 06/20/25 Transmitted Pain 05:33 Notify Of Changes [facility] 06/20/25 Transmitted From Base 05:33 Director Skills For [facility] 06/20/25 Transmitted 24 Hours 05:33 Emergency Dysrhythmia [facility] 06/20/25 Transmitted Protocol 05:33 Rhythm Strips Once [facility] 06/20/25 Transmitted Every Shift 05:33 Oxygen By Nasal 06/20/25 Transmitted Cannula 05:33 Problem List: (1) Hypertensive urgency (2) Headache (3) Generalized weakness Date of Service: Jun 20, 2025 Billing Provider: HUBERT SOL DNP Common Visit Codes: [id number] INP/OBS CARE (HIGH) HUBERT SOL DNP Jun 20, 2025 05:50
[2025-06-20] MEDS: SODIUM CHLOR 0.9% PF (SALINE LOCK) 10ML VIAL/SYR IV SCH (06:00)
[2025-06-20] MEDS: LOSARTAN POTASSIUM 50 MG TAB PO SCH (10:28)
--- NOTE | 2025-06-20 12:52 | DVHPN2 ---
Reviewed: Care Plan, H&P, Labs, Medications, Previous Orders, Radiology Changes from previous H/P or p: No Changes Eyes: No Pain, No Vision change, No Conjunctivae inflammation, No Eyelid inflammation, No Other, No Redness ENT: No Ear pain, No Ear discharge, No Nose pain, No Nose discharge, No Nose congestion, No Mouth pain, No Mouth swelling, No Throat pain, No Throat swelling, No Other Cardiovascular: No Chest Pain, No Palpitations, No Orthopnea, No Paroxysmal Noc. Dyspnea, No Edema, No Lt Headedness; Other (Hypertension) Respiratory: No Cough, No Dry, No Shortness of breath, No SOB with excertion, No Wheezing, No Hemoptysis, No Pleuritic Pain, No Sputum, No Other Gastrointestinal: No Nausea, No Vomiting, No Abdominal Pain, No Diarrhea, No Constipation, No Melena, No Hematochezia, No Other Genitourinary: No Dysuria, No Frequency, No Incontinence, No Hematuria, No Retention, No Other Musculoskeletal: No other, No neck pain, No shoulder pain, No arm pain, No back pain, No hand pain, No leg pain, No foot pain Skin: No Rash, No Lesions, No Jaundice, No Bruising, No Other Objective Vitals Vital Signs Date Time Temp Pulse Resp B/P (MAP) Pulse Ox O2 Delivery O2 Flow Rate FiO2 06/20/25 12:33 97.9 68 17 159/114 (129) 99 97.9 06/20/25 07:30 Room Air* 0 21 Medications Current Medications Medications Dose Ordered Sig/Jensen Route Start Time Stop Time Status Last Admin Dose Admin Amlodipine Besylate 10 mg DAILY PO 06/20/25 10:00 06/20/25 10:29 10 MG Losartan Potassium 50 mg DAILY PO 06/20/25 10:00 06/20/25 10:28 50 MG Hydralazine HCl 10 mg Q6HP PRN IV 06/20/25 05:45 Aspirin 81 mg DAILY PO 06/20/25 10:00 06/20/25 10:27 81 MG Atorvastatin Calcium 20 mg HS PO 06/20/25 22:00 Sodium Chloride 10 ml Q8HR IV 06/20/25 06:00 06/20/25 06:00 10 ML Acetaminophen/ Hydrocodone Bitart 1 tab Q4HP PRN PO 06/20/25 05:45 Ondansetron HCl 4 mg Q4HP PRN IV 06/20/25 05:45 Docusate Sodium 100 mg BIDPRN PRN PO 06/20/25 05:45 Acetaminophen 650 mg Q6HP PRN PO 06/20/25 05:45 Nitroglycerin 0.4 mg Q5MINP PRN SL 06/20/25 05:45 Morphine Sulfate 2 mg Q30M PRN IV 06/20/25 05:45 Laboratory Results Laboratory Tests 06/20/25 03:29 Chemistry Test 06/20/25 03:29 Calcium Level 9.3 mg/dL (8.7-10.4) Cardiac Markers Test 06/20/25 03:29 B-Type Natriuretic Peptide 18.21 pg/mL (0-100) Labs and/or images reviewed: Labs reviewed by me, Image(s) reviewed by me Assessment/Plan Assessment/Plan Hypertensive urgency blood pressure 218/138, now 150 systolic, continue amlodipine losartan CT head negative Chest x-ray negative Hypercholesterolemia History of [place] status post stents Chronic current smoker counseling Chronic current alcohol abuse counseling Chronic current meth abuse: Counseling Chronic current marijuana abuse: Counseled Time spent 50 minutes Plan discussed with: Patient Date of Service: Jun 20, 2025 Billing Provider: MARCUS CORBIN MD Common Visit Codes: [id number] INP/OBS CARE(HIGH) MARCUS CORBIN MD Jun 20, 2025 12:52
[2025-06-20] MEDS: HYDROcodone-ACET 5/325MG TAB PO PRN (14:44)
[2025-06-20] MEDS: hydrALAZINE HCL 20 MG/ML VL IV PRN (15:22)
[2025-06-20] MEDS: ONDANSETRON HCL 4 MG/2 ML VIAL IV PRN (17:03)
[2025-06-20] MEDS: ATORVASTATIN 20 MG TAB PO SCH (21:29)
[2025-06-21 00:59] VITALS: BP 158/104; PULSE 63; RESP 18; TEMP 97.7; O2SAT 99
[2025-06-21 05:00] VITALS: BP 151/90; PULSE 65; RESP 18; TEMP 97.9; O2SAT 98
[2025-06-21 06:37] LABS: Alanine Aminotransferase 16 U/L (7-40); Alkaline Phosphatase 95 U/L (46-116); Anion Gap 8 (5-15); BUN/Creatinine Ratio 7.4 (10.0-20.0); Blood Urea Nitrogen 9 mg/dL (9-23); Calcium 9.4 mg/dL (8.7-10.4); Carbon Dioxide 26 mmol/L (20-31); Chloride 107 mmol/L (98-107); Glucose 96 mg/dL (74-106); Potassium 4.2 mmol/L (3.5-5.1); Sodium 141 mmol/L (136-145); Total Protein 7.3 g/dL (5.7-8.2)
[2025-06-21 06:38] LABS: Albumin 4.1 g/dL (3.2-4.8); Bilirubin, Total 0.4 mg/dL (0.2-1.0)
[2025-06-21 07:36] LABS: Hematocrit 43.8 % (41.0-53.0); Hemoglobin 14.5 g/dL (13.5-17.5); Mean Corpuscular Hemoglobin 30.0 pg (28.0-32.0); Mean Corpuscular Volume 90.6 fL (80.0-100.0); Nucleated Red Blood Cells % 0.0 %
[2025-06-21 08:00] VITALS: PULSE 86
--- NOTE | 2025-06-21 08:22 | DVHPN2 ---
Reviewed: Care Plan, H&P, Labs, Medications, Previous Orders, Radiology Changes from previous H/P or p: No Changes Eyes: No Pain, No Vision change, No Conjunctivae inflammation, No Eyelid inflammation, No Other, No Redness ENT: No Ear pain, No Ear discharge, No Nose pain, No Nose discharge, No Nose congestion, No Mouth pain, No Mouth swelling, No Throat pain, No Throat swelling, No Other Cardiovascular: No Chest Pain, No Palpitations, No Orthopnea, No Paroxysmal Noc. Dyspnea, No Edema, No Lt Headedness; Other (Hypertension) Respiratory: No Cough, No Dry, No Shortness of breath, No SOB with excertion, No Wheezing, No Hemoptysis, No Pleuritic Pain, No Sputum, No Other Gastrointestinal: No Nausea, No Vomiting, No Abdominal Pain, No Diarrhea, No Constipation, No Melena, No Hematochezia, No Other Genitourinary: No Dysuria, No Frequency, No Incontinence, No Hematuria, No Retention, No Other Musculoskeletal: No other, No neck pain, No shoulder pain, No arm pain, No back pain, No hand pain, No leg pain, No foot pain Skin: No Rash, No Lesions, No Jaundice, No Bruising, No Other Objective Vitals Vital Signs Date Time Temp Pulse Resp B/P (MAP) Pulse Ox O2 Delivery O2 Flow Rate FiO2 06/21/25 05:00 97.9 65 18 151/90 (110) 98 97.9 06/20/25 20:00 Room Air* 0 21 Intake/Output Intake and Output 06/21/25 07:00 Intake Total 0 ml Balance 0 ml Intake Oral 0 ml # Voids 3 # Bowel Movements 1 Medications Current Medications Medications Dose Ordered Sig/Jensen Route Start Time Stop Time Status Last Admin Dose Admin Amlodipine Besylate 10 mg DAILY PO 06/20/25 10:00 06/20/25 10:29 10 MG Losartan Potassium 50 mg DAILY PO 06/20/25 10:00 06/20/25 10:28 50 MG Hydralazine HCl 10 mg Q6HP PRN IV 06/20/25 05:45 06/21/25 04:30 10 MG Aspirin 81 mg DAILY PO 06/20/25 10:00 06/20/25 10:27 81 MG Atorvastatin Calcium 20 mg HS PO 06/20/25 22:00 06/20/25 21:29 20 MG Sodium Chloride 10 ml Q8HR IV 06/20/25 06:00 06/21/25 06:06 10 ML Acetaminophen/ Hydrocodone Bitart 1 tab Q4HP PRN PO 06/20/25 05:45 06/21/25 03:45 1 TAB Ondansetron HCl 4 mg Q4HP PRN IV 06/20/25 05:45 06/20/25 17:03 4 MG Docusate Sodium 100 mg BIDPRN PRN PO 06/20/25 05:45 Acetaminophen 650 mg Q6HP PRN PO 06/20/25 05:45 Nitroglycerin 0.4 mg Q5MINP PRN SL 06/20/25 05:45 Morphine Sulfate 2 mg Q30M PRN IV 06/20/25 05:45 Laboratory Results Laboratory Tests 06/21/25 05:55 Chemistry Test 06/21/25 05:55 Albumin 4.1 g/dL (3.2-4.8) Calcium Level 9.4 mg/dL (8.7-10.4) Total Protein 7.3 g/dL (5.7-8.2) LFT Test 06/21/25 05:55 Alanine Aminotransferase (ALT) 16 U/L (7-40) Alkaline Phosphatase 95 U/L (46-116) Aspartate Amino Transferase (AST) 20 U/L (13-40) Total Bilirubin 0.4 mg/dL (0.2-1.0) Labs and/or images reviewed: Labs reviewed by me, Image(s) reviewed by me Assessment/Plan Assessment/Plan Hypertensive urgency blood pressure 218/138, now 150 systolic, continue amlodipine losartan CT head negative Chest x-ray negative Hypercholesterolemia History of [place] status post stents Chronic current smoker counseling Chronic current alcohol abuse counseling Chronic current meth abuse: Counseling Chronic current marijuana abuse: Counseled Severe right-sided headache: History of migraines: CT head negative, Toradol 30 mg IV q.6 hours ESR to rule out temporal arteritis ordered CARLOS hines at bedside Time spent 50 minutes Plan discussed with: Patient My Orders Orders - MARCUS CORBIN MD Procedure Category Date Status Time Drug Screen LAB 06/20/25 Logged 13:27 Date of Service: Jun 21, 2025 Billing Provider: MARCUS CORBIN MD Common Visit Codes: [id number] INP/OBS CARE(HIGH) MARCUS CORBIN MD Jun 21, 2025 08:22
[2025-06-21 08:41] LABS: Opiate Scree,Urine Neg (NEGATIVE)
[2025-06-21] MEDS ORDERED: MORPHINE SULFATE 4 MG/ML SYR/VIAL IV PRN (08:45)
[2025-06-21 08:46] LABS: Amphetamine Screen, Urine Pos (NEGATIVE); Barbiturate Scree,Urine Neg (NEGATIVE); Benzodiazephine Screen, Urine Neg (NEGATIVE); Cocaine Screen, Urine Neg (NEGATIVE); Phencyclidine Screen, Urine Neg (NEGATIVE)
[2025-06-21 08:47] LABS: Cannabinoid Screen, Urine Neg (NEGATIVE)
[2025-06-21 09:00] VITALS: BP 128/96; PULSE 82; RESP 17; TEMP 98.2; O2SAT 97
[2025-06-21] MEDS: KETOROLAC TROMETH 30 MG/ML 1ML VIAL IV PRN (09:02)
[2025-06-21 13:00] VITALS: BP 134/85; PULSE 79; RESP 17; TEMP 97.7; O2SAT 96
[2025-06-21 17:00] VITALS: BP 136/96; PULSE 85; RESP 17; TEMP 98.2; O2SAT 99
== END 2025-06-21 18:55 | disposition left against medical advice (07) | DRG 199 ==
LOC: ER 02:41 → OVERFLOW 05:33 → TELE-EAST 11:15
PROVIDERS: ADMIT Family Medicine; ATTEND Family Medicine
DX: I16.0 Hypertensive urgency (principal); E78.00 Pure hypercholesterolemia, unspecified; I10 Essential (primary) hypertension; F15.10 Other stimulant abuse, uncomplicated; F10.10 Alcohol abuse, uncomplicated; F17.210 Nicotine dependence, cigarettes, uncomplicated; Z53.29 Procedure and treatment not carried out because of patient's decision for other reasons; F12.10 Cannabis abuse, uncomplicated; I25.2 Old myocardial infarction; Z88.8 Allergy status to other drugs, medicaments and biological substances; Z95.5 Presence of coronary angioplasty implant and graft; Z71.51 Drug abuse counseling and surveillance of drug abuser; Z71.6 Tobacco abuse counseling
CPT/HCPCS: 36415; 70450; 71045; 80048; 80053; 80307; 80320; 83880; 84484; 85025; 85652; 96374; 96375; G0378; J1885; J2405